=== PATIENT | female | born 1945 | race Caucasian/White ===

== ENCOUNTER 2016-05-09 18:59 | Observation (INO) | payer MEDICARE, BC ==
[~2016-05-09] VITALS: Ht 154.9 cm; Wt 74.4 kg
[2016-05-09] VITALS (13 sets, daily range): BP systolic 102–170; BP diastolic 46–77; PULSE 56–71; RESP 16–18; TEMP 98.5; O2SAT 97–100
[2016-05-09] MEDS ORDERED: ASPI1TAB69 PO (19:29)
[2016-05-09] MEDS ORDERED: LISI10TA3 PO (19:29)
[2016-05-09] MEDS ORDERED: BRIL90TA PO (19:29)
[2016-05-09] MEDS ORDERED: ATOR1TAB18 PO (19:29)
[2016-05-09] MEDS ORDERED: VITA200012 PO (19:29)
[2016-05-09] MEDS ORDERED: METO25TA6 PO (19:29)
[2016-05-09] MEDS ORDERED: SODIUM CHLOR 0.9% 1000 ML INJ 1,000 ML IV SCH (19:30)
[2016-05-09] MEDS ORDERED: SODIUM CHLORIDE 0.9% FLUSH 5 ML FLUSH IVF PRN ×3 (19:30→23:15)
[2016-05-09] MEDS ORDERED: ASPIRIN 81 MG CHEW TAB PO ONE (19:30)
[2016-05-09] MEDS: NITROGLYCERIN 0.4 MG SL 25 TABS/BTL SL SCH ×3 (19:38→20:05)
--- NOTE | 2016-05-09 19:39 | PD ---
HPI Chief Complaint: Chest Pain Time Seen by Provider: 19:17 Travel History International Travel<30 days: No Contact w/Intl Traveler<30days: No Traveled to known affect area: No History of Present Illness HPI 71-year-old female presents to the emergency department by private transportation for complaint of retrosternal chest pain that radiates to the back and rates 4/10 in intensity. Patient reports symptoms began around 4 PM. Patient states similar symptoms although with radiation to the jaw December 2015 at which time she was diagnosed with myocardial infarction with underwent cardiac catheterization with confirmed coronary vessel disease and had 2 stents placed at that time to the LAD and left circumflex. Patient currently takes aspirin 81 mg daily is continued on Brilinta to and has access to sublingual nitroglycerin. Patient did not take any nitroglycerin as she was concerned it may interact adversely with her other medications. Patient denies any shortness of breath, sweats, nausea, or vomiting. Patient denies personal history of hypertension diabetes or tobaccoism; patient does admit to history of dyslipidemia and family history of CAD with father dying in his 70s with previous CABG. Patient denies any shortness of breath or pleuritic pain. Patient has been visiting here from [place] since April 09. Patient has been very active. Patient does not report symptoms beginning while she was active today. [facility] Past Medical History Narrative Medical CAD, myocardial infarction, cardiac catheterization, stents 2, dyslipidemia; tubal ligation and tonsillectomy cardiac catheterization; no tobacco use; nursing notes reviewed Hx Anticoagulant Therapy: Yes (BRILINTA, BABY ASA DAILY) Cardiac Catheterization: Yes (DEC 2015) Cardiovascular Problems: Yes (DE) High Cholesterol: Yes Chest Pain: Yes Coronary Artery Disease: Yes Myocardial Infarction: Yes (DEC 2015) Tetanus Vaccination: > 5 Years Influenza Vaccination: Yes ?: Not Menopausal: Yes : 3 Para: 2 Miscarriage: 1 Tubal Ligation: Yes Past Surgical History Section: Yes (X2) Coronary Stent: Yes (X2) Tonsillectomy: Yes Social History Alcohol Use: Yes ("OCCASIONALLY") Tobacco Use: No Substance Use: No Allergies-Medications (Allergen,Severity, Reaction): Coded Allergies: Penicillin (Verified Allergy, Unknown, Hives, 05/09/16) Reported Meds & Prescriptions Reported Meds & Active Scripts Active Reported Nitrostat SL (Nitroglycerin) 0.4 Mg Subl 0.4 Mg SL DIRECTED PRN 1 tablet under the tongue as needed for chest pain. Repeat every 5 minutes for a total of 3 DOSES or call 911 if NO relief. Vitamin D3 (Cholecalciferol) 2,000 Unit Tab 2,000 Units PO DAILY Aspirin 81 Mg Tabdr 81 Mg PO DAILY Metoprolol Succinate ER 24 HR (Metoprolol Succinate) 25 Mg Tab 25 Mg PO DAILY Lisinopril 10 Mg Tab 10 Mg PO DAILY Brilinta (Ticagrelor) 90 Mg Tab 90 Mg PO BID Atorvastatin (Atorvastatin Calcium) 80 Mg Tab 80 Mg PO HS Review of Systems Except as stated in HPI: all other systems reviewed are Neg General / Constitutional: No: Fever Eyes: No: Visual changes HENT: No: Congestion Cardiovascular: Positive: Chest Pain or Discomfort, No: Diaphoresis, Syncope, Dyspnea on exertion Respiratory: No: Shortness of Breath, Pleuritic Pain Gastrointestinal: No: Nausea, Vomiting, Abdominal Pain Genitourinary: No: Flank Pain Musculoskeletal: No: Pain Skin: No Rash Neurologic: No: Weakness Psychiatric: Positive: Anxiety Hematologic/Lymphatic: No: Easy Bruising Physical Exam Narrative GENERAL: WD WN F NAD SKIN: Warm and dry. HEAD: Normocephalic. EYES: No scleral icterus. No injection or drainage. NECK: Supple, trachea midline. No JVD or lymphadenopathy. CARDIOVASCULAR: Regular rate and rhythm without murmurs, gallops, or rubs. RESPIRATORY: Breath sounds equal bilaterally. No accessory muscle use. GASTROINTESTINAL: Abdomen soft, non-tender, nondistended. MUSCULOSKELETAL: No cyanosis, or edema. BACK: Nontender without obvious deformity. No CVA tenderness. Data Data Last Documented VS Orders Electrocardiogram (05/09/16 19:26) Basic Metabolic Panel (Bmp) (05/09/16 19:26) Ckmb (Isoenzyme) Profile (05/09/16 19:26) Complete Blood Count With Diff (05/09/16 19:26) Magnesium (Mg) (05/09/16 19:26) Prothrombin Time / Inr (Pt) (05/09/16 19:26) Act Partial Throm Time (Ptt) (05/09/16 19:26) Troponin I (05/09/16 19:26) Chest, Single Ap (05/09/16 19:26) Ecg Monitoring (05/09/16 19:26) Bilateral Bp Monitoring (05/09/16 19:26) Iv Access Insert/Monitor (05/09/16 19:26) Oximetry (05/09/16 19:26) Oxygen Administration (05/09/16 19:26) Aspirin Chew (Aspirin Chew) (05/09/16 19:30) Sodium Chloride 0.9% Flush (Ns Flush) (05/09/16 19:30) Nitroglycerin Sl (Nitrostat Sl) (05/09/16 19:30) Sodium Chlor 0.9% 1000 Ml Inj (Ns 1000 M (05/09/16 19:30) Sodium Chlor 0.9% 250 Ml Inj (Ns 250 Ml (05/09/16 20:15) Sodium Chlorid 0.9% 500 Ml Inj (Ns 500 M (05/09/16 20:30) Nitroglycerin 2% Oint (Nitroglycerin 2% (05/09/16 20:30) D-Dimer (05/09/16 19:20) Ketorolac Inj (Toradol Inj) (05/09/16 20:45) Ondansetron Inj (Zofran Inj) (05/09/16 21:30) Morphine Inj (Morphine Inj) (05/09/16 21:30) Troponin I (05/09/16 22:41) Electrocardiogram (05/09/16 ) Ckmb (Isoenzyme) Profile (05/09/16 22:39) Admit Order (Ed Use Only) (05/09/16 ) ^ Saline Lock (05/09/16 23:07) Resp Oxygen Crow C Titrat 1-4 L (05/09/16 ) ^ Notify Dr: Other (05/09/16 23:07) Sodium Chloride 0.9% Flush (Ns Flush) (05/10/16 09:00) Sodium Chloride 0.9% Flush (Ns Flush) (05/09/16 23:15) Activity Bed Rest With Brp (05/09/16 23:07) Vital Signs (Adult) Q4H (05/09/16 23:07) Cardiac Rhythm .As Directed (05/09/16 23:07) ^ Notify Dr: Other .PRN (05/09/16 23:07) ^ Notify Dr. Parameters (05/09/16 23:07) Resp Oxygen Nasal Cannula (05/09/16 ) Ckmb (Isoenzyme) Profile (05/10/16 01:30) Ckmb (Isoenzyme) Profile (05/10/16 04:30) Troponin I (05/10/16 01:30) Troponin I (05/10/16 04:30) Electrocardiogram (05/10/16 04:30) ^ Obtain (05/09/16 23:07) Sodium Chloride 0.9% Flush (Ns Flush) (05/09/16 23:15) Sodium Chloride 0.9% Flush (Ns Flush) (05/10/16 09:00) Clinical Nursing Instructor / Telemetry VALERIA.Q8H (05/09/16 23:07) Labs MDM Medical Decision Making Medical Screen Exam Complete: Yes Emergency Medical Condition: Yes Medical Record Reviewed: Yes Interpretation(s) EKG normal sinus rhythm rate [address] elevation or injury pattern noted at this time there is some nonspecific anterolateral ST-T flattening noted. No comparison EKG identified. troponin I: less than 0.02, not elevated CK: 51, not elevated coags: grossly wnl CBC & BMP Diagram 05/09/16 19:20 Vital Signs Date Time Temp Pulse Resp B/P Pulse Ox O2 Delivery O2 Flow Rate FiO2 05/09/16 20:05 59 110/59 100 Nasal Cannula 2 05/09/16 20:00 58 16 119/67 99 Nasal Cannula 2 05/09/16 19:56 69 16 124/60 99 Nasal Cannula 2 05/09/16 19:52 58 16 127/69 99 Nasal Cannula 2 05/09/16 19:43 71 146/75 99 Nasal Cannula 2 05/09/16 19:41 99 Nasal Cannula 2 05/09/16 19:07 98.5 71 16 170/75 100 168/77 05/09/16 19:05 71 18 Room Air D-dimer: 0.27, not elevated Differential Diagnosis Chest pain, ACS, myocardial infarction, atypical chest pain, PE, aortic dissection; unlikely pneumothorax Narrative Course Patient placed on conveyor monitor IV access obtained specimens collected and sent for resulting EKG performed which does not show any ST elevation injury and no ST segment depression for ischemia patient does have flattening of the lateral ST-T segment which is nonspecific. Patient administered aspirin 162 mg by mouth and ordered to receive sublingual nitroglycerin 0.4 mg every 5 minutes as needed for chest pain. is at bedside. concern patient receiving sublingual nitroglycerin because he is not sure what this medication does even though she was given a prescription for nitroglycerin at time of discharge from the hospital in December she has not used it and they are not sure how to administer the medication. Patient and at bedside provided extensive information regarding intervention being provided and purpose/use of the medication nitroglycerin. Patient and 's questions answered to their satisfaction. After one sublingual nitroglycerin patient reports discomfort remains for over 10 in intensity blood pressure did fall into more normal range. @ 20:20 p.m. patient is informed of lab results imaging results and after x 2 sublingual nitroglycerin blood pressure has decreased was given a bolus of normal saline 250 cc current discomfort she rates as 3/10 in intensity and states symptoms have not provided significant change in discomfort. Call placed to cardiology. Patient reports pain has increased again to 4/10; now reports patient's mother with history of PE. Patient denies any pleuritic pain shortness of breath inactivity lower extremity pain or swelling. D-Dimer added to labs. At 21:30 PM patient is clinically improved rates discomfort as mild but gives it a number of 2/10 in intensity. D-dimer is not elevated at 0.27. Formed of this information. Due to discomfort of 2/10 in intensity well administer morphine sulfate 2 mg IV along with Zofran 4 mg IV. Medical records from previous cardiac catheterization 12/2015 requested. Patient admitted to [facility] Physician Communication Physician Communication call placed to interventional physician cardiology; discussed in detail with Dr Christianson --- appears stable for [facility]; discussed with interventional physician Pauline BADILLO for [facility] [employer] [facility] obs admission Diagnosis Primary Impression: Chest pain Qualified Code: R07.9 - Chest pain, unspecified type Admitting Information Admitting Physician Requests: Observation Gila Yusuf MD May 09, 2016 19:39 CBC & BMP Diagram 05/09/16 19:20 Vital Signs Date Time Temp Pulse Resp B/P Pulse Ox O2 Delivery O2 Flow Rate FiO2 05/09/16 20:05 59 110/59 100 Nasal Cannula 2 05/09/16 20:00 58 16 119/67 99 Nasal Cannula 2 05/09/16 19:56 69 16 124/60 99 Nasal Cannula 2 05/09/16 19:52 58 16 127/69 99 Nasal Cannula 2 05/09/16 19:43 71 146/75 99 Nasal Cannula 2 05/09/16 19:41 99 Nasal Cannula 2 05/09/16 19:07 98.5 71 16 170/75 100 168/77 05/09/16 19:05 71 18 Room Air D-dimer: 0.27, not elevated Differential Diagnosis Chest pain, ACS, myocardial infarction, atypical chest pain, PE, aortic dissection; unlikely pneumothorax Narrative Course Patient placed on conveyor monitor IV access obtained specimens collected and sent for resulting EKG performed which does not show any ST elevation injury and no ST segment depression for ischemia patient does have flattening of the lateral ST-T segment which is nonspecific. Patient administered aspirin 162 mg by mouth and ordered to receive sublingual nitroglycerin 0.4 mg every 5 minutes as needed for chest pain. is at bedside. concern patient receiving sublingual nitroglycerin because he is not sure what this medication does even though she was given a prescription for nitroglycerin at time of discharge from the hospital in December she has not used it and they are not sure how to administer the medication. Patient and at bedside provided extensive information regarding intervention being provided and purpose/use of the medication nitroglycerin. Patient and 's questions answered to their satisfaction. After one sublingual nitroglycerin patient reports discomfort remains for over 10 in intensity blood pressure did fall into more normal range. @ 20:20 p.m. patient is informed of lab results imaging results and after x 2 sublingual nitroglycerin blood pressure has decreased was given a bolus of normal saline 250 cc current discomfort she rates as 3/10 in intensity and states symptoms have not provided significant change in discomfort. Call placed to cardiology. Patient reports pain has increased again to 4/10; now reports patient's mother with history of PE. Patient denies any pleuritic pain shortness of breath inactivity lower extremity pain or swelling. D-Dimer added to labs. At 21:30 PM patient is clinically improved rates discomfort as mild but gives it a number of 2/10 in intensity. D-dimer is not elevated at 0.27. Formed of this information. Due to discomfort of 2/10 in intensity well administer morphine sulfate 2 mg IV along with Zofran 4 mg IV. Medical records from previous cardiac catheterization 12/2015 requested. Physician Communication Physician Communication call placed to interventional physician cardiology; discussed in detail with Dr Christianson --- appears stable for [facility] [employer] [facility] Diagnosis Primary Impression: Chest pain Qualified Code: R07.9 - Chest pain, unspecified type Glia Yusuf MD May 09, 2016 19:39
[2016-05-09 19:46] LABS: AUTOMATED NEUTROPHIL # 6.5 TH/MM3 (1.8-7.7); BASOPHIL # 0.1 TH/MM3 (0-0.2); BASOPHIL % 1.6 % (0.0-2.0); EOSINOPHIL # 0.2 TH/MM3 (0-0.4); EOSINOPHIL % 2.2 % (0.0-4.0); HEMATOCRIT 40.5 % (35.0-46.0); HEMO FLAGS DIFF FINAL; LYMPH % 16.9 % (9.0-44.0); LYMPHOCYTE # 1.6 TH/MM3 (1.0-4.8); MEAN CELL VOLUME 88.5 FL (80.0-100.0); MEAN CORPUSCULAR HEMOGLOBIN 30.2 PG (27.0-34.0); MEAN CORPUSCULAR HGB CONC 34.2 % (32.0-36.0); MONO % 9.4 % (0.0-8.0); NEUT % 69.9 % (16.0-70.0); PLATELET COUNT 263 TH/MM3 (150-450); RED BLOOD COUNT 4.57 MIL/MM3 (4.00-5.30); RED CELL DISTRIBUTION WIDTH 13.6 % (11.6-17.2); WHITE BLOOD COUNT 9.3 TH/MM3 (4.0-11.0)
[2016-05-09 19:54] LABS: CHLORIDE 106 MEQ/L (98-107); POTASSIUM 3.9 MEQ/L (3.5-5.1); SODIUM (NA) 142 MEQ/L (136-145)
[2016-05-09 19:56] LABS: ANION GAP 8 MEQ/L (5-15); BICARBONATE 28.4 MEQ/L (21.0-32.0); BLOOD UREA NITROGEN 14 MG/DL (7-18); MAGNESIUM 1.9 MG/DL (1.5-2.5)
[2016-05-09 19:59] LABS: APTT (PATIENT) 25.7 SEC (24.3-30.1); INTERNATIONAL NORMALIZED RATIO 0.9 RATIO
[2016-05-09 20:00] LABS: GLOMERULAR FILTRATION RATE 82 ML/MIN (>89)
[2016-05-09 20:03] LABS: CREATINE KINASE 51 U/L (26-192)
[2016-05-09] MEDS ORDERED: SODIUM CHLOR 0.9% 250 ML INJ 250 ML IV ONE (20:15)
--- NOTE | 2016-05-09 20:16 | RADHPO ---
EXAM DATE/TIME: 05/09/2016 19:41 [facility] COMPARISON: No previous studies available for comparison. INDICATIONS : Chest pain. MEDICAL HISTORY : Myocardial infarction. Hypercholesterolemia. CAD SURGICAL HISTORY : Tonsillectomy. Tubal ligation. Coronary artery stent. ENCOUNTER: Initial ACUITY: 1 day PAIN SCORE: 7/10 LOCATION: Bilateral buttock FINDINGS: The lungs are clear without infiltrate, nodule, or mass. There is no appreciable pleural effusion fo r technique. Heart and mediastinum are unremarkable. CONCLUSION: No acute cardiopulmonary disease. Irene Clement MD on May 09, 2016 at 20:14 Board Certified Radiologist. This report was verified electronically.
[2016-05-09] MEDS ORDERED: NITROGLYCERIN 2% OINT 1 GM PACKET TOPICAL ONE (20:30)
[2016-05-09] MEDS ORDERED: SODIUM CHLORID 0.9% 500 ML INJ 500 ML IV ONE (20:30)
[2016-05-09] MEDS ORDERED: KETOROLAC TROMETHAMINE 30 MG/ML (IVP) VIAL IV PUSH ONE (20:45)
[2016-05-09] MEDS ORDERED: NITR0.4S SL (21:00)
[2016-05-09] MEDS ORDERED: MORPHINE SULFATE 4 MG/ML INJ IV PUSH ONE (21:30)
[2016-05-09] MEDS ORDERED: ONDANSETRON HCL 4 MG/2 ML VIAL IV PUSH ONE (21:30)
[2016-05-09 23:22] LABS: CREATINE KINASE 43 U/L (26-192)
[2016-05-10] VITALS (8 sets, daily range): BP systolic 99–115; BP diastolic 55–81; PULSE 57–136; RESP 14–19; TEMP 96.8–98.3; O2SAT 94–99
[2016-05-10 03:08] LABS: CREATINE KINASE 37 U/L (26-192)
[2016-05-10 05:27] LABS: CREATINE KINASE 34 U/L (26-192)
[2016-05-10] MEDS ORDERED: NITROGLYCERIN 0.4 MG SL 25 TABS/BTL SL PRN (05:45)
--- NOTE | 2016-05-10 07:37 | HHI.HP ---
[facility] Primary Care Physician Non-Staff Admission Diagnosis chest pain Diagnoses: (1) Chest pain Diagnosis: Principal (2) Coronary artery disease Diagnosis: Secondary (3) Hyperlipidemia Diagnosis: Secondary (4) History of coronary artery stent placement Diagnosis: Secondary (5) Family history of heart disease Diagnosis: Secondary Chief Complaint: Chest pain Travel History International Travel<30 Days: No Contact w/Intl Traveler <30 Da: No Traveled to Known Affected Are: No History of Present Illness 71-year-old female with known history of coronary disease, hyperlipidemia who presented to the hospital because of chest pain. Patient states that she is in normal state of health yesterday in October and pedicures with her friend. She started developing midsternal chest pain 2/10 on a pain scale. It is located midsternal chest with radiation into her back. She denies any radiation to her neck, jaw, arm, denies any nausea, vomiting, shortness of breath, dyspnea, diaphoresis. Patient states that the pain was constant so she presented to the ER for evaluation. Patient states that she is given 2 aspirin, 2 nitroglycerin, without any relief. Nitropaste was placed and morphine was given and slowly the pain did resolve at approximately midnight last night. Patient is asymptomatic at this time. 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 She did undergo cardiac catheterization in December 2015. She had 2 stents placed. She has been taking her medications in outpatient setting. Is recommended by ER physician that patient be observed in the hospital in the chest pain center for further recommendations. Review of Systems Constitutional: DENIES: Diaphoretic episodes, Fatigue, Fever, Weight gain, Weight loss, Chills, Dizziness, Change in appetite, Night Sweats Eyes: DENIES: Blurred vision, Diplopia, Eye inflammation, Eye pain, Vision loss , Double Vision Ears, nose, mouth, throat: DENIES: Vertigo, Nasal discharge, Throat pain, Ear Pain, Running Nose, Sinus Pain Respiratory: DENIES: Apneas, Cough, Snoring, Wheezing, Hemoptysis, Sputum production, Shortness of breath Cardiovascular: COMPLAINS OF: Chest pain, DENIES: Palpitations, Syncope, Dyspnea on Exertion, Lower Extremity Edema, Orthopnea Gastrointestinal: DENIES: Abdominal pain, Black stools, Bloody stools, Constipation, Diarrhea, Nausea, Vomiting, Difficulty Swallowing, Anorexia Neurologic: DENIES: Abnormal gait, Headache, Localized weakness, Paresthesias, Seizures, Speech Problems, Tremor, Poor Balance Past Family Social History Past Medical History Hyperlipidemia Coronary artery disease History of myocardial infarction Past Surgical History Tonsillectomy 2 Tubal ligation Bilateral bunionectomy Reported Medications Reported Meds & Active Scripts Active Reported Nitrostat SL (Nitroglycerin) 0.4 Mg Subl 0.4 Mg SL DIRECTED PRN 1 tablet under the tongue as needed for chest pain. Repeat every 5 minutes for a total of 3 DOSES or call 911 if NO relief. Vitamin D3 (Cholecalciferol) 2,000 Unit Tab 2,000 Units PO DAILY Aspirin 81 Mg Tabdr 81 Mg PO DAILY Metoprolol Succinate ER 24 HR (Metoprolol Succinate) 25 Mg Tab 25 Mg PO DAILY Lisinopril 10 Mg Tab 10 Mg PO DAILY Brilinta (Ticagrelor) 90 Mg Tab 90 Mg PO BID Atorvastatin (Atorvastatin Calcium) 80 Mg Tab 80 Mg PO HS Allergies: Coded Allergies: Penicillin (Verified Allergy, Unknown, Hives, 05/09/16) Family History Reviewed and strong family history of heart disease with father. Have his first heart attack when he was age 44, underwent coronary bypass surgery, patient had 2 major strokes and renal failure Social History Patient denies any tobacco or illicit drugs. Does drink alcohol approximately 1 -2 times monthly Physical Exam Vital Signs Vital Signs Date Time Temp Pulse Resp B/P Pulse Ox O2 Delivery O2 Flow Rate FiO2 05/10/16 05:08 96.8 60 14 99/55 96 05/10/16 01:50 57 05/10/16 01:30 57 05/10/16 01:17 136 18 113/58 94 Room Air 05/09/16 23:39 97 Nasal Cannula 2.00 05/09/16 23:11 64 110/49 99 Nasal Cannula 2 05/09/16 22:41 64 16 102/46 97 Nasal Cannula 2 05/09/16 22:00 16 05/09/16 21:41 62 114/49 98 Nasal Cannula 2 05/09/16 21:11 63 16 125/58 97 Nasal Cannula 2 05/09/16 20:41 56 18 137/51 100 Nasal Cannula 2 05/09/16 20:22 61 16 144/64 99 Nasal Cannula 2 05/09/16 20:05 59 110/59 100 Nasal Cannula 2 05/09/16 20:00 58 16 119/67 99 Nasal Cannula 2 05/09/16 19:56 69 16 124/60 99 Nasal Cannula 2 05/09/16 19:52 58 16 127/69 99 Nasal Cannula 2 05/09/16 19:43 71 146/75 99 Nasal Cannula 2 05/09/16 19:41 99 Nasal Cannula 2 05/09/16 19:07 170/75 168/77 05/09/16 19:07 98.5 71 16 170/75 100 168/77 05/09/16 19:05 71 18 Room Air Physical Exam GENERAL: Well-developed, well-nourished, in no acute distress. alert and orientated HEENT: Head is normocephalic without any lesions or masses noted. Facial features are symmetric. Eyes: Pupils equal round reactive to light. Extraocular muscles are intact. Conjunctivae were clear. Oropharyngeal: Pharynx without any erythema edema. Tongue is midline without deviation. Buccal mucosa is moist without any masses or lesions NECK: Supple without any masses. Trachea midline no deviation. No JVD, no bruits are appreciated CARDIAC: Regular rhythm, regular rate. S1/S2 are heard. No gallops or rubs. 2/ 6 early ejection murmur noted in aortic and pulmonic regions LUNGS: Clear to auscultation bilaterally. No wheeze, rhonchi or rales. No use of accessory muscles on inspiration or expiration. ABDOMEN: Soft, nontender. Nondistended. Bowel sounds heard in all 4 quadrants. No organomegaly or masses. Negative rebound, negative guarding EXTREMITIES: No edema, pulses are equal bilaterally. No cyanosis or clubbing NEUROLOGY: Mood and affect appear appropriate. Cranial nerves II through XII grossly intact. Muscle strength 5/5 in upper and lower extremities bilaterally. Deep tendon reflexes are 2+ in upper and lower extremities bilaterally. Laboratory Laboratory Tests Test 05/09/16 05/09/16 05/10/16 05/10/16 19:20 22:39 02:15 04:45 White Blood Count 9.3 Red Blood Count 4.57 Hemoglobin 13.8 Hematocrit 40.5 Mean Corpuscular Volume 88.5 Mean Corpuscular Hemoglobin 30.2 Mean Corpuscular Hemoglobin 34.2 Concent Red Cell Distribution Width 13.6 Platelet Count 263 Mean Platelet Volume 7.8 Neutrophils (%) (Auto) 69.9 Lymphocytes (%) (Auto) 16.9 Monocytes (%) (Auto) 9.4 Eosinophils (%) (Auto) 2.2 Basophils (%) (Auto) 1.6 Neutrophils # (Auto) 6.5 Lymphocytes # (Auto) 1.6 Monocytes # (Auto) 0.9 Eosinophils # (Auto) 0.2 Basophils # (Auto) 0.1 CBC Comment DIFF FINAL Differential Comment Prothrombin Time 10.0 Prothromb Time International 0.9 Ratio Activated Partial 25.7 Thromboplast Time D-Dimer Quantitative (PE/DVT) 0.27 Sodium Level 142 Potassium Level 3.9 Chloride Level 106 Carbon Dioxide Level 28.4 Anion Gap 8 Blood Urea Nitrogen 14 Creatinine 0.71 Estimat Glomerular Filtration 82 Rate Random Glucose 98 Calcium Level 8.6 Magnesium Level 1.9 Total Creatine Kinase 51 43 37 34 Troponin I LESS THAN 0.02 LESS THAN 0.02 LESS THAN 0.02 LESS THAN 0.02 Result Diagram: 05/09/16191905/09/161919 Imaging Last Impressions Chest X-Ray 05/09/161925 Signed Impressions: Service Date/Time: Monday, May 09, 2016 19:41 - CONCLUSION: No acute cardiopulmonary disease. Irene Clement MD Assessment and Plan Assessment and Plan Chest pain Patient with increased risk factors to include age, coronary artery disease, history myocardial infarction, hyperlipidemia, family history of heart disease Serial cardiac enzymes were performed and reviewed by myself and ruled out any acute coronary event Serial EKGs were performed and reviewed by myself which shows sinus rhythm with nonspecific ST changes and anterior lateral leads Patient reluctant to undergo nuclear stress test, wants to discuss with her , because her father had kidney failure related to stress test in the past. Patient would pursue exercise stress test however patient does have an aortic early systolic murmur. Nuclear stress test was performed which does show a fixed defect. No reversible defect is identified to indicate any ischemia. Continue aspirin and nitroglycerin as needed Coronary artery disease, hyperlipidemia Continue home medications DVT prevention Low risk, early ambulation Written by Andrei Ramirez PA-C, acting as scribe for Dr. Montgomery on 05/10/16 at 1250. The documentation accurately reflects the work and decisions performed face-to- face by Dr. Montgomery on 05/10/16 at 1250. Discharge disposition Discharge home in stable condition Activity: Ad viral. Diet: Healthy heart diet Medications per medication reconciliation Follow-up primary medical doctor and patch sander in one week Problem Qualifiers (1) Chest pain: Qualified Code: R07.9 - Chest pain, unspecified type (2) Coronary artery disease: Qualified Code: I25.10 - Coronary artery disease, angina presence unspecified, unspecified vessel or lesion type, unspecified whether [place] or transplanted heart (3) Hyperlipidemia: Qualified Code: E78.5 - Hyperlipidemia, unspecified hyperlipidemia type Andrei Ramirez May 10, 2016 07:29 Swati Montgomery MD May 10, 2016 13:03
[2016-05-10] MEDS ORDERED: LISINOPRIL 10 MG TAB PO SCH (09:00)
[2016-05-10] MEDS ORDERED: TICAGRELOR 90 MG TAB PO SCH (09:00)
[2016-05-10] MEDS ORDERED: METOPROLOL SUCCINATE 25 MG EXTENDED RELEASE TAB PO SCH (09:00)
[2016-05-10] MEDS ORDERED: ASPIRIN EC 81 MG TABEC PO SCH (09:00)
[2016-05-10] MEDS ORDERED: SODIUM CHLORIDE 0.9% FLUSH 5 ML FLUSH IVF SCH ×2 (09:00)
[2016-05-10] MEDS ORDERED: REGADENOSON INJ 0.4 MG/5 ML SYR IV ONE (11:07)
--- NOTE | 2016-05-10 12:42 | RADHPO ---
EXAM DATE/TIME: 05/10/2016 11:20 [facility] COMPARISON: No previous studies available for comparison. INDICATIONS : Midsternal chest pain radiating to back. Angina. DOSE: 25.4 mCi Tc99m Myoview at stress. 8.5 mCi Tc99m Myoview at rest. 0.4 mg Lexiscan STRESS SYMPTOMS: Dyspnea and headache. EJECTION FRACTION: 69% MEDICAL HISTORY : Myocardial infarction. Hypercholesterolemia. Coronary artery disease. SURGICAL HISTORY : Coronary artery stent. Tubal ligation. section. Tonsilectomy and bunionectomy. ENCOUNTER: Initial ACUITY: 1 day PAIN SCALE: 4/10 LOCATION: Midsternal chest TECHNIQUE: The patient underwent pharmacologic stress with infusion of prescribed dose. Continuous ECG tracing was monitored during stress. Gated SPECT imaging was performed after stress and conventional SPECT i maging was performed at rest. The examination was performed on a SPECT/CT scanner, both attenuation and non-corrected datasets were reviewed. FINDINGS: DISTRIBUTION: The maximum perfused segment at stress is in the anterior wall. PERFUSION STUDY: Fixed defect within the lateral wall towards the base. No reversible perfusion defects GATED STUDY: There is intact wall motion and thickening without hypokinetic or dyskinetic segments. CONCLUSION: Fixed defect lateral wall likely old infarct. No reversible perfusion defects to suggest ischemia. RISK CATEGORY: Intermediate (1-3% Annual Mortality Rate) Cecilio Carias MD on May 10, 2016 at 12:40 Board Certified Radiologist. This report was verified electronically.
--- NOTE | 2016-05-10 12:53 | HHI.DCPOC ---
Discharge Care Plan Diagnosis: (1) Chest pain Your Health Problems Are: Chest Pain Goals to Promote Your Health * To prevent worsening of your condition and complications * To maintain your health at the optimal level Directions to Meet Your Goals Take your medications as prescribed Follow your dietary instruction Follow activity as directed Keep your appointments as scheduled Take your immunizations and boosters as scheduled If your symptoms worsen call your PCP, if no PCP go to Urgent Care Center or Emergency Room Smoking is Dangerous to Your Health. Avoid second hand smoke Call the 24-hour hour crisis hotline for domestic abuse at Andrei Ramirez May 10, 2016 12:53
--- NOTE | 2016-05-10 17:36 | TR ---
Date Performed: 05/10/2016 Time Performed: 11:22:40 DOCTOR: Jose Daniel DRUG LIST: CLINICAL HISTORY: CHEST PAIN REASON FOR TEST: Chest pain. REASON FOR ENDING: OBSERVATION: CONCLUSION: Lexiscan stress test was performed under standard four minute protocol. Radionuclide was injected one minute prior to ending the test. Developed dyspnea and headache. Rare PVCs were not ed. ECG tracings at peak stress show ischemic changes leads I, II and V4. Recovery was quick and unev entful with resolution of symptoms. Nuclear imaging and interpretation are pending, COMMENTS:
[2016-05-10] MEDS ORDERED: ATORVASTATIN 40 MG TAB PO SCH ×2 (21:00)
[2016-05-10] MEDS ORDERED: ATORVASTATIN 80 MG TAB PO SCH (21:00)
--- NOTE | 2016-05-11 13:24 | EKG ---
Date Performed: 05/10/2016 Time Performed: 04:35:08 PTAGE: 71 years EKG: Sinus bradycardia. Normal ECG except for rate Since PREVIOUS TRACING , no significant change noted PREVIOUS TRACIN05/09/2016 23.09 DOCTOR: Torito Kiran Interpretating Date/Time 05/11/2016 13:24:04
--- NOTE | 2016-05-11 13:25 | EKG ---
Date Performed: 05/09/2016 Time Performed: 19:04:56 PTAGE: 71 years EKG: Sinus rhythm . Lateral ST-T changes are nonspecific Since previous tracing, no significant change noted Borderline ECG NO PREVIOUS TRACING DOCTOR: Torito Kiran Interpretating Date/Time 05/11/2016 13:24:31
--- NOTE | 2016-05-11 13:25 | EKG ---
Date Performed: 05/09/2016 Time Performed: 23:09:34 PTAGE: 71 years EKG: Sinus rhythm . Anterolateral ST-T changes are nonspecific Since previous tracing, no significant change noted [facility] ECG PREVIOUS TRACING : 05/09/2016 19.04 DOCTOR: Torito Kiran Interpretating Date/Time 05/11/2016 13:24:21
== END 2016-05-10 13:28 | disposition home or self-care (01) ==
LOC: PHED 18:59 → PHEDA 23:21 → UNDOADMOB 23:21 → PHEDA 05-10 01:26 → PH3A 05-10 01:26 → UNDODISOB 05-10 13:28
PROVIDERS: ADMIT Family Medicine; ATTEND Family Medicine
DX: R07.89 Other chest pain (principal); I25.10 Atherosclerotic heart disease of native coronary artery without angina pectoris; R01.1 Cardiac murmur, unspecified; R94.31 Abnormal electrocardiogram [ECG] [EKG]; E78.5 Hyperlipidemia, unspecified; I25.2 Old myocardial infarction; E78.00 Pure hypercholesterolemia, unspecified; Z95.5 Presence of coronary angioplasty implant and graft; Z79.82 Long term (current) use of aspirin; Z82.49 Family history of ischemic heart disease and other diseases of the circulatory system
CPT/HCPCS: 71010; 78452; 80048; 82550; 83735; 84484; 85025; 85379; 85610; 85730; 93005; 93017; 96361; 96374; 96375; 99285; A9502; G0378; J1885; J2270; J2405; J2785; J7030; J7040; J7050

== ENCOUNTER 2016-05-16 16:58 | Inpatient (IN) | payer MEDICARE, BC ==
[~2016-05-16] VITALS: Ht 154.9 cm; Wt 72.1 kg
[~2016-05-16 16:58] MED LIST: ASPI1TAB69 PO; ATOR1TAB18 PO; BRIL90TA PO; LISI10TA3 PO; METO25TA6 PO; NITR0.4S SL; VITA200012 PO
[2016-05-16 17:00] VITALS: BP 171/74; PULSE 107; RESP 18; TEMP 98; O2SAT 99
--- NOTE | 2016-05-16 19:43 | PD ---
HPI Chief Complaint: Abdominal Pain Time Seen by Provider: 19:28 Travel History International Travel<30 days: No Contact w/Intl Traveler<30days: No Traveled to known affect area: No History of Present Illness HPI 71-year-old female history of coronary artery disease presents after being sent by an urgent care center for evaluation of cholecystitis. The patient reports that last weekend she began developing some right upper quadrant abdominal pain. Initially she felt that she was having chest pain and she was admitted to [facility] chest pain center. The patient reports that symptoms resolved 6 days ago but then returned 5 days ago. Since then she's had intermittent right upper quadrant abdominal pain that radiates into the back which she describes as an aching pain. There are no obvious leading factors. It seems to be somewhat aggravated by eating, for example a few days ago she ate [employer] and this seemed to aggravate the pain. She was seen at an urgent care center yesterday and sent for CT abdomen and pelvis with contrast. The radiology report of her CT reads "abnormal gallbladder which is very distended, thick-walled, and inflamed. It contains no calcified stones. Findings represent acute or chronic cholecystitis. There are inflammatory changes present suggesting at least some acute inflammation. Suggest surgical consultation for cholecystectomy." Radiologist Dr Pham. The patient was then sent here. She denies any pain at this time. She has had decreased appetite, nausea. Denies any chest pain, shortness of breath, fevers, flank pain, dysuria, hematuria. 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 No other complaints. PFSH Past Medical History Hx Anticoagulant Therapy: Yes (BRILINTA) Cardiac Catheterization: Yes (DEC 2015) Cardiovascular Problems: Yes High Cholesterol: Yes Chest Pain: Yes Coronary Artery Disease: Yes Myocardial Infarction: Yes (DEC 2015) Menopausal: Yes : 3 Para: 2 Miscarriage: 1 Tubal Ligation: Yes Past Surgical History Section: Yes (X2) Coronary Stent: Yes (X2) Tonsillectomy: Yes Social History Alcohol Use: Yes ("OCCASIONALLY") Tobacco Use: No Substance Use: No Allergies-Medications (Allergen,Severity, Reaction): Coded Allergies: Penicillin (Verified Allergy, Unknown, Hives, 05/09/16) Reported Meds & Prescriptions Reported Meds & Active Scripts Active Reported Omeprazole 20 Mg Tab 20 Mg PO DAILY Nitrostat SL (Nitroglycerin) 0.4 Mg Subl 0.4 Mg SL DIRECTED PRN 1 tablet under the tongue as needed for chest pain. Repeat every 5 minutes for a total of 3 DOSES or call 911 if NO relief. Vitamin D3 (Cholecalciferol) 2,000 Unit Tab 2,000 Units PO DAILY Aspirin 81 Mg Tabdr 81 Mg PO DAILY Metoprolol Succinate ER 24 HR (Metoprolol Succinate) 25 Mg Tab 25 Mg PO DAILY Lisinopril 10 Mg Tab 10 Mg PO DAILY Brilinta (Ticagrelor) 90 Mg Tab 90 Mg PO BID Atorvastatin (Atorvastatin Calcium) 80 Mg Tab 80 Mg PO HS Review of Systems Except as stated in HPI: all other systems reviewed are Neg Physical Exam Narrative GENERAL: Pleasant well-developed well-nourished female in no acute distress SKIN: Warm and dry. HEAD: Atraumatic. Normocephalic. EYES: Pupils equal and round. No scleral icterus. No injection or drainage. ENT: No nasal bleeding or discharge. Mucous membranes pink and moist. NECK: Trachea midline. No JVD. CARDIOVASCULAR: Regular rate and rhythm. No murmur appreciated. RESPIRATORY: No accessory muscle use. Clear to auscultation. Breath sounds equal bilaterally. GASTROINTESTINAL: Abdomen soft, mild right upper quadrant tenderness to palpation without guarding, negative Daley's. MUSCULOSKELETAL: No obvious deformities. No edema. NEUROLOGICAL: Awake and alert. No obvious cranial nerve deficits. Motor grossly within normal limits. Normal speech. PSYCHIATRIC: Appropriate mood and affect; insight and judgment normal. Data Data Last Documented VS Vital Signs Date Time Temp Pulse Resp B/P Pulse Ox O2 Delivery O2 Flow Rate FiO2 05/16/16 21:50 16 05/16/16 21:49 98.5 84 151/65 99 Room Air Orders Complete Blood Count With Diff (05/16/16 19:36) Comprehensive Metabolic Panel (05/16/16 19:36) Lipase (05/16/16 19:36) Prothrombin Time / Inr (Pt) (05/16/16 19:36) Act Partial Throm Time (Ptt) (05/16/16 19:36) Electrocardiogram (05/16/16 19:36) Iv Access Insert/Monitor (05/16/16 19:36) Levofloxacin 500 Mg Premix Inj (Levaquin (05/16/16 19:45) Metronidazole 500 Mg Inj (Flagyl 500 Mg (05/16/16 19:45) Ondansetron Inj (Zofran Inj) (05/16/16 19:45) Lactic Acid Sepsis Protocol (05/16/16 19:44) Blood Culture (05/16/16 19:44) Admit Order (Ed Use Only) (05/16/16 ) Diet Npo (05/17/16 Breakfast) Consult General Surgery (05/16/16 ) Labs Laboratory Tests Test 05/16/16 05/16/16 19:41 20:15 White Blood Count 11.4 TH/MM3 Red Blood Count 4.25 MIL/MM3 Hemoglobin 12.8 GM/DL Hematocrit 37.2 % Mean Corpuscular Volume 87.6 FL Mean Corpuscular Hemoglobin 30.1 PG Mean Corpuscular Hemoglobin 34.4 % Concent Red Cell Distribution Width 14.1 % Platelet Count 314 TH/MM3 Mean Platelet Volume 7.4 FL Neutrophils (%) (Auto) 80.3 % Lymphocytes (%) (Auto) 6.7 % Monocytes (%) (Auto) 10.9 % Eosinophils (%) (Auto) 1.6 % Basophils (%) (Auto) 0.5 % Neutrophils # (Auto) 9.1 TH/MM3 Lymphocytes # (Auto) 0.8 TH/MM3 Monocytes # (Auto) 1.2 TH/MM3 Eosinophils # (Auto) 0.2 TH/MM3 Basophils # (Auto) 0.1 TH/MM3 CBC Comment DIFF FINAL Differential Comment Prothrombin Time 11.0 SEC Prothromb Time International 1.0 RATIO Ratio Activated Partial 29.3 SEC Thromboplast Time Sodium Level 136 MEQ/L Potassium Level 4.2 MEQ/L Chloride Level 101 MEQ/L Carbon Dioxide Level 25.4 MEQ/L Anion Gap 10 MEQ/L Blood Urea Nitrogen 11 MG/DL Creatinine 0.65 MG/DL Estimat Glomerular Filtration 90 ML/MIN Rate Random Glucose 76 MG/DL Calcium Level 8.7 MG/DL Total Bilirubin 0.6 MG/DL Aspartate Amino Transf 31 U/L (AST/SGOT) Alanine Aminotransferase 37 U/L (ALT/SGPT) Alkaline Phosphatase 136 U/L Total Protein 7.5 GM/DL Albumin 2.9 GM/DL Lipase 55 U/L Lactic Acid Level 0.9 mmol/L MDM Medical Decision Making Medical Screen Exam Complete: Yes Emergency Medical Condition: Yes Medical Record Reviewed: Yes Differential Diagnosis Cholecystitis, biliary colic, choledocholithiasis, cholangitis, peptic ulcer disease, pancreatitis Narrative Course 71-year-old female who is had intermittent right upper quadrant pain radiating to the back for the past week. She had a CT of the abdomen and pelvis is now patient today revealing evidence of cholecystitis. The patient reports an allergy to penicillin(hives). The patient will be given empirically Flagyl and Levaquin. The patient was initially seen in triage. Protocol orders were performed. The patient will be moved to a medical bed when one becomes available. She is stable. Scripts Hydrocodone-Acetaminophen (Lortab)5-325 Mg Tab1 Tab PO Q6H PRN (PAIN) #28 TAB Ref 0 Prov:Antolin Sneed MD 05/17/16 Jelani Niño May 16, 2016 19:43
[2016-05-16] MEDS ORDERED: metroNIDAZOLE 500 MG INJ 100 ML IV ONE (19:45)
[2016-05-16] MEDS ORDERED: ONDANSETRON HCL 4 MG/2 ML VIAL IV PUSH ONE (19:45)
[2016-05-16] MEDS ORDERED: LEVOFLOXACIN 500 MG PREMIX INJ 100 ML IV ONE (19:45)
[2016-05-16] MEDS ORDERED: OMEP20TA PO (19:49)
[2016-05-16 19:55] LABS: AUTOMATED NEUTROPHIL # 9.1 TH/MM3 (1.8-7.7); BASOPHIL # 0.1 TH/MM3 (0-0.2); BASOPHIL % 0.5 % (0.0-2.0); EOSINOPHIL # 0.2 TH/MM3 (0-0.4); EOSINOPHIL % 1.6 % (0.0-4.0); HEMATOCRIT 37.2 % (35.0-46.0); HEMO FLAGS DIFF FINAL; LYMPH % 6.7 % (9.0-44.0); LYMPHOCYTE # 0.8 TH/MM3 (1.0-4.8); MEAN CELL VOLUME 87.6 FL (80.0-100.0); MEAN CORPUSCULAR HEMOGLOBIN 30.1 PG (27.0-34.0); MEAN CORPUSCULAR HGB CONC 34.4 % (32.0-36.0); MONO % 10.9 % (0.0-8.0); NEUT % 80.3 % (16.0-70.0); PLATELET COUNT 314 TH/MM3 (150-450); RED BLOOD COUNT 4.25 MIL/MM3 (4.00-5.30); RED CELL DISTRIBUTION WIDTH 14.1 % (11.6-17.2); WHITE BLOOD COUNT 11.4 TH/MM3 (4.0-11.0)
[2016-05-16 20:26] LABS: ALKALINE PHOSPHATASE 136 U/L (45-117); ALT (GPT) 37 U/L (10-53); ANION GAP 10 MEQ/L (5-15); AST (GOT) 31 U/L (15-37); BICARBONATE 25.4 MEQ/L (21.0-32.0); BLOOD UREA NITROGEN 11 MG/DL (7-18); CHLORIDE 101 MEQ/L (98-107); GLOMERULAR FILTRATION RATE 90 ML/MIN (>89); POTASSIUM 4.2 MEQ/L (3.5-5.1); SODIUM (NA) 136 MEQ/L (136-145); TOTAL BILIRUBIN ADULT 0.6 MG/DL (0.2-1.0)
[2016-05-16 20:32] LABS: APTT (PATIENT) 29.3 SEC (24.3-30.1)
[2016-05-16 21:49] VITALS: BP 151/65; PULSE 84; RESP 16; TEMP 98.5; O2SAT 99
[2016-05-16] MEDS ORDERED: BISACODYL 10 MG SUPP PR PRN (22:15)
[2016-05-16] MEDS ORDERED: NALOXONE HCL 0.4 MG/ML AMP IV PRN (22:15)
[2016-05-16] MEDS ORDERED: MAGNESIUM HYDROXIDE SUSP 30 ML CUP PO PRN (22:15)
[2016-05-16] MEDS ORDERED: SENNOSIDES 8.6 MG TAB PO PRN (22:15)
[2016-05-16] MEDS ORDERED: SODIUM CHLORIDE 0.9% FLUSH 5 ML FLUSH FLUSH PRN (22:15)
[2016-05-16] MEDS ORDERED: DOCUSATE SODIUM 100 MG CAP PO SCH (22:15)
[2016-05-16] MEDS ORDERED: ACETAMINOPHEN 325 MG TAB PO PRN (22:15)
[2016-05-16] MEDS ORDERED: ONDANSETRON HCL 4 MG/2 ML VIAL IVP PRN (22:15)
--- NOTE | 2016-05-16 22:17 | PD ---
Data Data Last Documented VS Vital Signs Date Time Temp Pulse Resp B/P Pulse Ox O2 Delivery O2 Flow Rate FiO2 05/16/16 21:50 16 05/16/16 21:49 98.5 84 151/65 99 Room Air Orders Complete Blood Count With Diff (05/16/16 19:36) Comprehensive Metabolic Panel (05/16/16 19:36) Lipase (05/16/16 19:36) Prothrombin Time / Inr (Pt) (05/16/16 19:36) Act Partial Throm Time (Ptt) (05/16/16 19:36) Electrocardiogram (05/16/16 19:36) Iv Access Insert/Monitor (05/16/16 19:36) Levofloxacin 500 Mg Premix Inj (Levaquin (05/16/16 19:45) Metronidazole 500 Mg Inj (Flagyl 500 Mg (05/16/16 19:45) Ondansetron Inj (Zofran Inj) (05/16/16 19:45) Lactic Acid Sepsis Protocol (05/16/16 19:44) Blood Culture (05/16/16 19:44) Admit Order (Ed Use Only) (05/16/16 ) Diet Npo (05/17/16 Breakfast) Consult General Surgery (05/16/16 ) Labs Laboratory Tests Test 05/16/16 05/16/16 19:41 20:15 White Blood Count 11.4 TH/MM3 Red Blood Count 4.25 MIL/MM3 Hemoglobin 12.8 GM/DL Hematocrit 37.2 % Mean Corpuscular Volume 87.6 FL Mean Corpuscular Hemoglobin 30.1 PG Mean Corpuscular Hemoglobin 34.4 % Concent Red Cell Distribution Width 14.1 % Platelet Count 314 TH/MM3 Mean Platelet Volume 7.4 FL Neutrophils (%) (Auto) 80.3 % Lymphocytes (%) (Auto) 6.7 % Monocytes (%) (Auto) 10.9 % Eosinophils (%) (Auto) 1.6 % Basophils (%) (Auto) 0.5 % Neutrophils # (Auto) 9.1 TH/MM3 Lymphocytes # (Auto) 0.8 TH/MM3 Monocytes # (Auto) 1.2 TH/MM3 Eosinophils # (Auto) 0.2 TH/MM3 Basophils # (Auto) 0.1 TH/MM3 CBC Comment DIFF FINAL Differential Comment Prothrombin Time 11.0 SEC Prothromb Time International 1.0 RATIO Ratio Activated Partial 29.3 SEC Thromboplast Time Sodium Level 136 MEQ/L Potassium Level 4.2 MEQ/L Chloride Level 101 MEQ/L Carbon Dioxide Level 25.4 MEQ/L Anion Gap 10 MEQ/L Blood Urea Nitrogen 11 MG/DL Creatinine 0.65 MG/DL Estimat Glomerular Filtration 90 ML/MIN Rate Random Glucose 76 MG/DL Calcium Level 8.7 MG/DL Total Bilirubin 0.6 MG/DL Aspartate Amino Transf 31 U/L (AST/SGOT) Alanine Aminotransferase 37 U/L (ALT/SGPT) Alkaline Phosphatase 136 U/L Total Protein 7.5 GM/DL Albumin 2.9 GM/DL Lipase 55 U/L Lactic Acid Level 0.9 mmol/L [facility] Supervised Visit with FRANK: Yes Narrative Course Assumed care patient. 71 year-old woman with a week's worth of epigastric abdominal pain, initially thought it was her heart disease. [place] similar to her previous heart disease. She has stents, [place], and is on Proventil. She didn't admission to [facility] with a negative workup and stress test. She went to an urgent care today where she had a CT scan that showed abnormal gallbladder which is very distended, thick-walled, and inflamed. No calcified gallstones. Likely acute or chronic cholecystitis. Inflammatory changes present suggesting early some acute inflammation. She has tenderness in the right upper quadrant. I think she has acute cholecystitis. I spoke with Dr. Swift, will consult on patient. Patient will be admitted to medicine. Avery Jj MD May 16, 2016 22:17
[2016-05-16 23:23] VITALS: BP 146/63; TEMP 98.5
[2016-05-16 23:55] VITALS: BP 132/62; PULSE 89; RESP 16; TEMP 98.8; O2SAT 97
[2016-05-17] VITALS (8 sets, daily range): BP systolic 115–133; BP diastolic 56–69; PULSE 76–87; RESP 16–18; TEMP 98.2–99.2; O2SAT 95–97
[2016-05-17] MEDS ORDERED: INSULIN HUMAN REGULAR 1,000 UNITS/10 ML VIAL SQ PRN (01:45)
[2016-05-17] MEDS ORDERED: METOPROLOL TARTRATE 25 MG TAB PO PRN (01:45)
[2016-05-17] MEDS ORDERED: SODIUM CHLORID 0.9% 500 ML IV SCH (01:45)
[2016-05-17] MEDS: LACTATED RINGER'S 1000 ML IV SCH (02:00)
--- NOTE | 2016-05-17 03:42 | HHI.HP ---
[facility] No Primary Care Physician Admission Diagnosis acute cholecystitis Diagnoses: Chief Complaint: Abdominal pain with diarrhea Travel History International Travel<30 Days: No Contact w/Intl Traveler <30 Da: No Traveled to Known Affected Are: No History of Present Illness 71 years old female with history of CAD status post heart catheter and stenting , on aspirin and Brilinta, was sent by the urgent care after she was evaluated for cholecystitis. Patient story started a week ago with mid epigastric pain transferred to the right upper quadrant she went to [facility] and she had a cardiac evaluation which came back negative. pain subsided and patient was sent home, however the pain came right back patient went to urgent care and had a CT of the abdomen which showed (abnormal gallbladder very distended, thick-walled, inflamed, it contains no calcified stones suggesting acute versus chronic cholecystitis and surgical consultation was recommended). So patient was sent to the hospital possible cholecystitis, surgery was consulted from the ED requested admission to medicine with consult. Patient reported having watery profuse diarrhea yesterday, no nausea or vomiting, no lightheadedness, the pain is around 8 out of 10, comes and goes, no alleviating or exacerbating factor. Patient started on antibiotic Review of Systems All 10 systems reviewed and was positive for what is mentioned in history of present illness otherwise negative Past Family Social History Past Medical History Coronary artery disease status post heart catheter Past Surgical History Heart catheterization with stenting Allergies: Coded Allergies: Penicillin (Verified Allergy, Unknown, Hives, 05/09/16) Family History Patient Not aware of medical problems are as in the family Social History Denied tobacco alcohol or illicit drug abuse Physical Exam Vital Signs Vital Signs Date Time Temp Pulse Resp B/P Pulse Ox O2 Delivery O2 Flow Rate FiO2 05/17/16 00:10 85 05/16/16 23:55 98.8 89 16 132/62 97 05/16/16 23:23 98.5 79 16 146/63 98 05/16/16 21:50 16 05/16/16 21:49 98.5 84 16 151/65 99 Room Air 05/16/16 17:00 98.0 107 18 171/74 99 Physical Exam GENERAL: This is a well-nourished, well-developed patient, in no apparent distress. SKIN: No rashes, warm and dry HEAD: Atraumatic. Normocephalic. EYES: Pupils equal round and reactive. Extraocular motions intact. No scleral icterus. ENT: Nose without bleeding, or drainage, Airway patent. NECK: Trachea midline. Supple CARDIOVASCULAR: Regular rate and rhythm without murmurs, gallops, or rubs. RESPIRATORY: Fair air entry bilaterally. No wheezes, rales, or rhonchi. GASTROINTESTINAL: Abdomen soft, non-tender, nondistended. Positive bowel sounds MUSCULOSKELETAL: Extremities without clubbing, cyanosis, or edema. Pedal pulses appreciated NEUROLOGICAL: Awake and alert. Moves all extremity. Normal speech.no focal neurological deficit Laboratory Laboratory Tests Test 05/16/16 05/16/16 19:41 20:15 White Blood Count 11.4 Red Blood Count 4.25 Hemoglobin 12.8 Hematocrit 37.2 Mean Corpuscular Volume 87.6 Mean Corpuscular Hemoglobin 30.1 Mean Corpuscular Hemoglobin 34.4 Concent Red Cell Distribution Width 14.1 Platelet Count 314 Mean Platelet Volume 7.4 Neutrophils (%) (Auto) 80.3 Lymphocytes (%) (Auto) 6.7 Monocytes (%) (Auto) 10.9 Eosinophils (%) (Auto) 1.6 Basophils (%) (Auto) 0.5 Neutrophils # (Auto) 9.1 Lymphocytes # (Auto) 0.8 Monocytes # (Auto) 1.2 Eosinophils # (Auto) 0.2 Basophils # (Auto) 0.1 CBC Comment DIFF FINAL Differential Comment Prothrombin Time 11.0 Prothromb Time International 1.0 Ratio Activated Partial 29.3 Thromboplast Time Sodium Level 136 Potassium Level 4.2 Chloride Level 101 Carbon Dioxide Level 25.4 Anion Gap 10 Blood Urea Nitrogen 11 Creatinine 0.65 Estimat Glomerular Filtration 90 Rate Random Glucose 76 Calcium Level 8.7 Total Bilirubin 0.6 Aspartate Amino Transf 31 (AST/SGOT) Alanine Aminotransferase 37 (ALT/SGPT) Alkaline Phosphatase 136 Total Protein 7.5 Albumin 2.9 Lipase 55 Lactic Acid Level 0.9 Date/Time Procedure Status Source Growth 05/16/16 20:15 Aerobic Blood Culture Received Blood Peripheral Pending 05/16/16 20:15 Anaerobic Blood Culture Received Blood Peripheral Pending Result Diagram: 2/10/17 1941 2/10/[address] abdomen reviewed personally by me as mentioned in history of present illness suggesting acute versus acute on chronic cholecystitis Assessment and Plan Assessment and Plan 71 years old female admitted with abdominal pain and diarrhea and increased alkaline phosphatase Acute versus acute on chronic cholecystitis Leukocytosis with left shift History of coronary artery disease status post heart catheter December 2015 on aspirin and Brilinta : Hypertension Hyperlipidemia DT prophylaxis with SCD Plan: Admit throat pain Consult surgery Iv fluids, Cipro Flagyl iv Pain management with morphine Resume statin, aspirin, Brilinta, lisinopril, metoprolol Add Vasotec when necessary It's better to avoid surgical intervention considering her recent IA and heart catheter stenting and the need for aspirin and Brilinta, unless intervention is highly recommended by general surgery, then consider cardiology consult Discussed Condition With Patient in ED physician Physician Certification 2 Midnight Certification Type: Admission for Inpatient Services Order for Inpatient Services The services are ordered in accordance with Medicare regulations or non- Medicare payer requirements, as applicable. In the case of services not specified as inpatient-only, they are appropriately provided as inpatient services in accordance with the 2-midnight benchmark. Estimated LOS (days): 2 days is the estimated time the patient will need to remain in the hospital, assuming treatment plan goals are met and no additional complications. Post-Hospital Plan: Not yet determined Brooks Springer MD May 17, 2016 03:41
[2016-05-17] MEDS ORDERED: MORPHINE SULFATE 4 MG/ML INJ IV PUSH PRN ×2 (03:45)
[2016-05-17] MEDS ORDERED: ENALAPRILAT 1.25 MG/ML VIAL IV PUSH PRN (03:45)
[2016-05-17] MEDS: metroNIDAZOLE 500 MG INJ 100 ML IV SCH ×3 (04:45→21:59)
[2016-05-17 07:05] LABS: AUTOMATED NEUTROPHIL # 6.4 TH/MM3 (1.8-7.7); BASOPHIL % 0.2 % (0.0-2.0); EOSINOPHIL # 0.2 TH/MM3 (0-0.4); EOSINOPHIL % 2.3 % (0.0-4.0); HEMATOCRIT 35.7 % (35.0-46.0); HEMO FLAGS DIFF FINAL; LYMPH % 8.9 % (9.0-44.0); LYMPHOCYTE # 0.8 TH/MM3 (1.0-4.8); MEAN CORPUSCULAR HEMOGLOBIN 29.8 PG (27.0-34.0); MEAN CORPUSCULAR HGB CONC 33.4 % (32.0-36.0); MONO % 12.9 % (0.0-8.0); NEUT % 75.7 % (16.0-70.0); PLATELET COUNT 275 TH/MM3 (150-450); RED BLOOD COUNT 4.01 MIL/MM3 (4.00-5.30); RED CELL DISTRIBUTION WIDTH 14.1 % (11.6-17.2); WHITE BLOOD COUNT 8.4 TH/MM3 (4.0-11.0)
[2016-05-17 07:18] LABS: BICARBONATE 22.5 MEQ/L (21.0-32.0); POTASSIUM 3.6 MEQ/L (3.5-5.1)
[2016-05-17 07:20] LABS: INDIRECT BILIRUBIN 0.4 MG/DL (0.0-0.8); TOTAL BILIRUBIN ADULT 0.5 MG/DL (0.2-1.0)
[2016-05-17] MEDS ORDERED: DOCUSATE SODIUM 100 MG CAP PO PRN (07:45)
[2016-05-17] MEDS ORDERED: GLUCAGON 1 MG/ML VIAL OTHER PRN (07:45)
[2016-05-17] MEDS ORDERED: DEXTROSE 50% IN WATER 50 ML VIAL(D50) IV PUSH PRN (07:45)
[2016-05-17] MEDS ORDERED: NITROGLYCERIN 0.4 MG SL 25 TABS/BTL SL PRN (07:45)
[2016-05-17] MEDS: PANTOPRAZOLE SOD 20 MG DELAYED RELEASE TAB PO SCH (08:49)
[2016-05-17] MEDS: ASPIRIN EC 81 MG TABEC PO SCH (08:49)
[2016-05-17] MEDS: METOPROLOL SUCCINATE 25 MG EXTENDED RELEASE TAB PO SCH (08:49)
[2016-05-17] MEDS ORDERED: LISINOPRIL 10 MG TAB PO SCH (09:00)
[2016-05-17] MEDS: TICAGRELOR 90 MG TAB PO SCH ×3 (09:00→21:59)
[2016-05-17] MEDS: SODIUM CHLORIDE 0.9% FLUSH 5 ML FLUSH FLUSH SCH ×2 (09:05→21:59)
[2016-05-17] MEDS: NS + KCL 20 MEQ INJ 1,000 ML IV SCH ×2 (09:06→21:16)
[2016-05-17] MEDS: CIPROFLOXACIN 400 MG PREMIX 200 ML IV SCH ×2 (09:09→21:59)
--- NOTE | 2016-05-17 10:02 | HHI.PR ---
Subjective Remarks Follow-up cholecystitis. Denies abdominal pain. Also reports diarrhea has stopped. Discussed with RN Objective Vitals Vital Signs Date Time Temp Pulse Resp B/P Pulse Ox O2 Delivery O2 Flow Rate FiO2 05/17/16 08:00 99.0 83 18 119/62 96 05/17/16 04:00 99.2 87 16 115/56 97 05/17/16 00:10 85 05/16/16 23:55 98.8 89 16 132/62 97 05/16/16 23:23 98.5 79 16 146/63 98 05/16/16 21:50 16 05/16/16 21:49 98.5 84 16 151/65 99 Room Air 05/16/16 17:00 98.0 107 18 171/74 99 I/O 05/16/16 05/16/16 05/16/16 05/17/16 05/17/16 05/17/16 07:00 15:00 23:00 07:00 15:00 23:00 Intake Total 0 ml Balance 0 ml Intake Oral 0 ml # Voids 2 # Bowel Movements 2 Result Diagram: 05/17/16 0555 05/17/16 0555 Objective Remarks GENERAL: Well-developed, well-nourished in no distress SKIN: Warm and dry. HEAD: Atraumatic. Normocephalic. EYES: Pupils equal and round. No scleral icterus. No injection or drainage. ENT: No nasal bleeding or discharge. Mucous membranes pink and moist. NECK: Trachea midline. No JVD. CARDIOVASCULAR: Regular rate and rhythm. RESPIRATORY: No accessory muscle use. Clear to auscultation. Breath sounds equal bilaterally. GASTROINTESTINAL: Abdomen soft, positive Daley's, nondistended. MUSCULOSKELETAL: Extremities without clubbing, cyanosis, or edema. No obvious deformities. NEUROLOGICAL: Awake and alert. No obvious cranial nerve deficits. Motor grossly within normal limits. Five out of 5 muscle strength in the arms and legs. Normal speech. PSYCHIATRIC: Appropriate mood and affect; insight and judgment normal. A/P Problem List: (1) Coronary artery disease ICD Code: I25.10 Status: Acute Assessment and Plan 71 years old female admitted with abdominal pain and diarrhea and increased alkaline phosphatase Acute versus acute on chronic cholecystitis. Continue nothing by mouth, IV hydration, IV Cipro, Flagyl and pain management counseled regarding narcotics. Awaiting Gen. surgery Consultation Leukocytosis with left shift secondary to above. History of coronary artery disease status post heart catheter December 2015 on aspirin and Brilinta : Denies chest pain. Continue beta derrick Hypertension. Stable Hyperlipidemia. Stable DT prophylaxis with SCD and subcutaneous heparin Discharge Planning Per general surgery Antolin Sneed MD May 17, 2016 10:02
[2016-05-17] MEDS ORDERED: HYDR-3533 PO (10:03)
--- NOTE | 2016-05-17 10:04 | HHI.DCPOC ---
Discharge Care Plan Diagnosis: (1) Coronary artery disease Your Health Problems Are: Difficulty with ADL Exercise Tolerance Goals to Promote Your Health * To prevent worsening of your condition and complications * To maintain your health at the optimal level Directions to Meet Your Goals Take your medications as prescribed Follow your dietary instruction Follow activity as directed Keep your appointments as scheduled Take your immunizations and boosters as scheduled If your symptoms worsen call your PCP, if no PCP go to Urgent Care Center or Emergency Room Smoking is Dangerous to Your Health. Avoid second hand smoke Call the 24-hour hour crisis hotline for domestic abuse at Antolin Sneed MD May 17, 2016 10:04
--- NOTE | 2016-05-17 13:05 | EKG ---
Date Performed: 05/16/2016 Time Performed: 20:08:16 PTAGE: 71 years EKG: Sinus rhythm POSSIBLE LEFT ATRIAL ENLARGEMENT BORDERLINE ECG PREVIOUS TRACING : 05/10/2016 04.35 Compared to previous tracing, sinus rate has increased DOCTOR: Bola Deiv Interpretating Date/Time 05/17/2016 13:00:15
[2016-05-17] MEDS: HEPARIN SODIUM - SQ 10,000 UNITS/ML VIAL SQ SCH ×2 (13:56→21:59)
--- NOTE | 2016-05-17 17:31 | MB ---
cc: PAT GUTIERREZ MD DATE OF CONSULTATION: 05/17/2016. REASON FOR CONSULTATION: Preoperative evaluation. HISTORY OF PRESENT ILLNESS: The patient is a very pleasant 71-year-old woman from [place] who has a history of a myocardial infarction last December with subsequent drug-eluting stent placement to the LAD and left circumflex. She was down here visiting and began developing central chest discomfort / right upper quadrant pain and was actually admitted to the chest pain center last week at which time she had a nonischemic nuclear stress test and was discharged home. However, she began having worsening pain becoming more localized to the right upper quadrant and she apparently had an outpatient CT scan of the abdomen that showed a very distended, thick-walled inflamed gallbladder consistent with acute versus chronic cholecystitis. Currently the patient continues to have a relatively controlled right upper quadrant tenderness. No significant chest discomfort, lightheadedness, dizziness, shortness of breath or syncope. PAST MEDICAL HISTORY: 1. Coronary artery disease as detailed above. 2. Hypertension. CURRENT MEDICATIONS: 1. Atorvastatin 80 milligrams at bedtime. 2. Lisinopril 10 milligrams daily. 3. Ciprofloxacin. 4. Aspirin 81 milligrams daily. 5. Toprol XL 25 milligrams daily 6. Protonix 20 milligrams daily. 7. Brilinta 90 milligrams twice a day. ALLERGIES: Penicillin. PHYSICAL EXAMINATION: VITAL SIGNS: Afebrile, pulse 76, respiratory rate 18, blood pressure 129/69, satting 96% on two liters. GENERAL: In general, a very pleasant well-appearing woman in no distress. NECK: No jugular venous distention. LUNGS: Clear to auscultation bilaterally. CARDIOVASCULAR: Regular rate and rhythm. No murmurs appreciated. ABDOMEN: Mild right upper quadrant tenderness without guarding or rebound. EXTREMITIES: No edema. LABORATORY DATA: White count 8.4 down from 11.4, hematocrit 35.7, platelets 275,000. Sodium 138, potassium 3.6, chloride 103, bicarbonate 22.5, BUN 10, creatinine 0.52. EKGS: EKG shows sinus rhythm with no significant S-T or T wave changes. IMPRESSION: 1. Preop evaluation. The patient unfortunately had a drug-eluting stent placed mid December of last year which does mean that ideally she would have continuous Brilinta through at least six months, if not a year. If she required cessation of her Brilinta for emergency surgery, that would be doable, though certainly with higher risk of acute / subacute stent thrombosis; however, it does not appear that this is an emergent situation. If the cholecystectomy or a decompression type procedure could be performed on Brilinta, I would consider that an acceptable cardiovascular risk if the bleeding risk was acceptable with the surgeon. Alternatively, if the patient can be medically treated until at least the six months alana, I believe that would be her safest bet from a cardiovascular standpoint. She did have a nonischemic nuclear stress test only last week, which is helpful. However, the main risk in this situation would be the acute / subacute stent thrombosis, which would occur with cessation of her antiplatelet regimen. I will be available on an as-needed basis should any questions arise. Thank you for the opportunity to participate in this patient's care. MD BRI Douglas/ABBE /3:00 PM /5:25 PM
[2016-05-17] MEDS: LISINOPRIL 10 MG TAB PO SCH (21:58)
[2016-05-17] MEDS: ATORVASTATIN 80 MG TAB PO SCH (21:58)
[2016-05-18] VITALS (7 sets, daily range): BP systolic 103–118; BP diastolic 51–70; PULSE 68–78; RESP 18; TEMP 97.4–98.6; O2SAT 95–99
[2016-05-18] MEDS: LACTATED RINGER'S 1000 ML IV SCH (02:00)
--- NOTE | 2016-05-18 04:59 | MB ---
cc: HANNA HOUSTON MD DATE OF CONSULTATION: 05/17/2016 REASON FOR CONSULTATION: Rule out acute cholecystitis. HISTORY OF PRESENT ILLNESS The patient is a 71-year-old female who presented to the emergency department complaining of acute onset of abdominal pain. The patient has multiple medical issues including coronary artery disease, cardiac stents, recent OR in December on aspirin and Brilinta. The patient stated that the pain started in the right upper quadrant epigastrium approximately a week ago. She was seen at [facility] for further evaluation and cardiac evaluation which cardiac workup was negative. She was sent home. She came back for further evaluation to the Urgent Care including evaluation and CT scan showing a very distended gallbladder, thickened wall inflamed, without evidence of gallstones. Therefore surgery was consulted for further evaluation. On my exam the patient is resting comfortably. She states the pain started approximately Thursday and noted acute onset of abdominal pain. Initially it was 8 out of 10 with some improvement with IV pain medication. She does know any relation to food. She has had decreased p.o. intake and has not really taken much because she does not really feel like eating. She does deny nausea and vomiting. She did have some episodes of diarrhea. She denies fever or chills. She states the pain comes and goes and was somewhat frustrated with multiple attempts at workup without resolution. PAST MEDICAL HISTORY: Coronary artery disease. OR. Stents. PAST SURGICAL HISTORY: Cardiac stents. ALLERGIES PENICILLIN SOCIAL HISTORY The patient denies smoking, ETOH or IVDA. FAMILY HISTORY Denies diabetes, coronary artery disease. MEDICATIONS: See EMR. Brilinta and aspirin. REVIEW OF SYSTEMS General: The patient denies fever. HEENT: Denies eye pain, ear pain, scleral icterus. Respiration: Denies cough or wheeze. Cardiac: Denies palpitation. Complained of history of OR. Abdomen: Complained of pain. Denies nausea, vomiting. : Denies dysuria, hematuria. Extremities: Denies arthralgia, myalgia. Endocrine: Denies polyuria, polydipsia. Psych: Denies change in mood or sensorium. Neuro: Denies numbness or tingling. PHYSICAL EXAMINATION General: The patient is in no acute distress. VITAL SIGNS: Temperature 98.8, respirations the 16. 97% on room air. Blood pressure 132/62. HEENT: PERRLA, EOMI. Atraumatic, normocephalic. Neck: Supple. Trachea midline. Lungs: Bilateral expansion. Heart: S1-S2, regular rhythm. Abdomen: Soft, positive tenderness to palpation right upper quadrant. No rebound. Nondistended. Extremities: Warm, well-perfused. Integument: No obvious masses or lesions. Psych: Good judgment. Neuro: GCS of 15, A&O x4. LABORATORY AND DIAGNOSTIC DATA WBC 11.4, hemoglobin 12.8, hematocrit 37.2, platelets 314, sodium 136, potassium 4.2, chloride 101, BUN 11, creatinine 0.65, T bili 0.6, AST 31, ALT 37, alk phos 136, lipase 55, INR 1, PT 11, PTT 29.3. IMAGING STUDIES From [place] showing distended and thickened gallbladder without evidence of stones. ASSESSMENT The patient with right upper quadrant pain and concern for acute cholecystitis, acalculous. After full clinical, radiologic laboratory workup, the patient with above-named complaints including right lower quadrant abdominal pain with distended thickened gallbladder and possible cholecystitis. PLAN: The patient with symptomatology somewhat consistent for gallbladder etiology. She has been evaluated from a cardiac standpoint with a recent stress test. However, given the patient's recent OR and stent placement, the patient may be at risk for surgical intervention. We will discuss with cardiology to evaluate the patient for risk stratification. The patient may warrant possible surgical intervention versus cholecystostomy tube, versus management with nonoperative and antibiotics. Will need HIDA scan. This was discussed with the patient in detail. The patient stated understanding, agreed, and would like to proceed. MD MU Pimentel/CRISTY /8:27 PM /3:53 AM SAMMI
[2016-05-18] MEDS: metroNIDAZOLE 500 MG INJ 100 ML IV SCH ×3 (05:40→21:26)
[2016-05-18] MEDS: HEPARIN SODIUM - SQ 10,000 UNITS/ML VIAL SQ SCH ×3 (05:40→21:27)
[2016-05-18 07:56] LABS: BICARBONATE 24.7 MEQ/L (21.0-32.0); MAGNESIUM 2.2 MG/DL (1.5-2.5); POTASSIUM 3.7 MEQ/L (3.5-5.1)
[2016-05-18] MEDS: CIPROFLOXACIN 400 MG PREMIX 200 ML IV SCH ×2 (08:51→21:26)
[2016-05-18] MEDS: METOPROLOL SUCCINATE 25 MG EXTENDED RELEASE TAB PO SCH (08:52)
[2016-05-18] MEDS: NS + KCL 20 MEQ INJ 1,000 ML IV SCH (08:52)
[2016-05-18] MEDS: PANTOPRAZOLE SOD 20 MG DELAYED RELEASE TAB PO SCH (08:52)
[2016-05-18] MEDS: SODIUM CHLORIDE 0.9% FLUSH 5 ML FLUSH FLUSH SCH ×2 (08:52→21:26)
[2016-05-18] MEDS: TICAGRELOR 90 MG TAB PO SCH ×2 (08:52→21:26)
[2016-05-18] MEDS: ASPIRIN EC 81 MG TABEC PO SCH (08:52)
[2016-05-18] MEDS ORDERED: ACETAMINOPHEN/HYDROcodone 325 MG/5 MG TAB PO PRN (09:45)
[2016-05-18] MEDS ORDERED: ACETAMINOPHEN/HYDROcodone 325 MG/10 MG TAB PO PRN (09:45)
--- NOTE | 2016-05-18 12:58 | HHI.PR ---
Subjective Remarks Follow-up cholecystitis. Improved abdominal pain but patient has not been eating. Seen in nuclear medicine. Discussed with general surgery. Discussed with RN Objective Vitals Vital Signs Date Time Temp Pulse Resp B/P Pulse Ox O2 Delivery O2 Flow Rate FiO2 05/18/16 08:00 98.0 68 18 107/58 95 05/18/16 04:00 98.5 76 18 118/56 95 05/18/16 00:00 98.4 78 18 104/51 96 05/17/16 21:00 80 05/17/16 20:00 98.5 79 18 128/58 97 05/17/16 16:00 98.2 79 18 133/64 96 I/O 05/17/16 05/17/16 05/17/16 05/18/16 05/18/16 05/18/16 07:00 15:00 23:00 07:00 15:00 23:00 Intake Total 0 ml 1268 ml 400 ml Balance 0 ml 1268 ml 400 ml Intake Oral 0 ml 720 ml IV Total 548 ml 400 ml # Voids 2 4 1 # Bowel Movements 2 0 0 Result Diagram: 05/17/16 0555 05/18/16 0703 Objective Remarks GENERAL: Well-developed, well-nourished in no distress SKIN: Warm and dry. HEAD: Atraumatic. Normocephalic. EYES: Pupils equal and round. No scleral icterus. No injection or drainage. ENT: No nasal bleeding or discharge. Mucous membranes pink and moist. NECK: Trachea midline. No JVD. CARDIOVASCULAR: Regular rate and rhythm. RESPIRATORY: No accessory muscle use. Clear to auscultation. Breath sounds equal bilaterally. GASTROINTESTINAL: Abdomen soft, positive Daley's, nondistended. MUSCULOSKELETAL: Extremities without clubbing, cyanosis, or edema. No obvious deformities. NEUROLOGICAL: Awake and alert. No obvious cranial nerve deficits. Motor grossly within normal limits. Five out of 5 muscle strength in the arms and legs. Normal speech. PSYCHIATRIC: Appropriate mood and affect; insight and judgment normal. Procedures none A/P Problem List: (1) Coronary artery disease ICD Code: I25.10 Status: Acute Assessment and Plan 71 years old female admitted with abdominal pain and diarrhea and increased alkaline phosphatase Acute versus acute on chronic cholecystitis. Improved abdominal pain. Continue IV Cipro, Flagyl and pain management counseled regarding narcotics. Follow-up pending the scan. Further management per general surgery. Agree with cardiology since this is not an emergent case, we'll hold off with any procedures that would require discontinuation of antiplatelets as patient needs status post recent cardiac stenting Leukocytosis with left shift secondary to above. Improved History of coronary artery disease status post heart catheter December 2015 on aspirin and Brilinta : Denies chest pain. Continue beta derrick Hypertension. Stable Hyperlipidemia. Stable DT prophylaxis with SCD and subcutaneous heparin Discharge Planning Per general surgery. If no surgery, restart diet and if tolerated discharge home Antolin Sneed MD May 18, 2016 12:58
--- NOTE | 2016-05-18 13:35 | RADRPT ---
EXAM DATE/TIME: 05/18/2016 10:05 This report includes an Addendum and supersedes previous reports for this exam. [facility] COMPARISON: No previous studies available for comparison. INDICATIONS : Abdominal pain for 1 week. DOSE: 4.1 mCi Tc99m Mebrofenin IV MEDICAL HISTORY : Myocardial infarction. Coronary artery disease. SURGICAL HISTORY : Tubal ligation. section. ENCOUNTER: Initial ACUITY: 1 week PAIN SCALE: 8/10 LOCATION: Right upper quadrant TECHNIQUE: Following the intravenous administration of radiotracer, dynamic sequential images were performed wit h continuous acquisition. FINDINGS: HEPATIC KINETICS: There is prompt uptake of radiotracer in the liver. No focal defects are seen. There is normal rate of washout from the hepatic parenchyma. BILIARY CLEARANCE: Activity is first seen in the extrahepatic biliary system at 10 minutes. There is normal excretion i nto the small bowel. GALLBLADDER: The gallbladder is never visualized. BILIARY ENTRIC REFLUX: None observed. CONCLUSION: 1. The gallbladder is never visualized. This can be seen with acute or chronic cholecystitis. 2. There is no biliary tract obstruction with good drainage into the small bowel. 3. A 24-hour delayed scan will be performed. Ricardo Almanza MD on May 18, 2016 at 13:31 Board Certified Radiologist. This report was verified electronically. ADDENDUM: 24-hour delayed imaging is provided. The gallbladder is not identified. In the appropriate clinical s etting, this would suggest cholecystitis. Sameer Rao MD on May 19, 2016 at 8:10 Board Certified Radiologist. This report was verified electronically.
[2016-05-18] MEDS: LISINOPRIL 10 MG TAB PO SCH (21:28)
[2016-05-18] MEDS: ATORVASTATIN 80 MG TAB PO SCH (21:29)
[2016-05-19] VITALS: BP 111/60; PULSE 76; RESP 18; TEMP 97.2; O2SAT 98
[2016-05-19] MEDS: LACTATED RINGER'S 1000 ML IV SCH (00:52)
[2016-05-19 04:00] VITALS: BP 100/48; PULSE 68; RESP 16; TEMP 97.6; O2SAT 97
[2016-05-19] MEDS: HEPARIN SODIUM - SQ 10,000 UNITS/ML VIAL SQ SCH ×2 (05:16→14:00)
[2016-05-19] MEDS: metroNIDAZOLE 500 MG INJ 100 ML IV SCH ×2 (05:16→11:22)
[2016-05-19] MEDS: PANTOPRAZOLE SOD 20 MG DELAYED RELEASE TAB PO SCH (07:39)
[2016-05-19] MEDS: ASPIRIN EC 81 MG TABEC PO SCH (07:39)
[2016-05-19] MEDS: TICAGRELOR 90 MG TAB PO SCH (07:40)
[2016-05-19] MEDS: METOPROLOL SUCCINATE 25 MG EXTENDED RELEASE TAB PO SCH (07:40)
[2016-05-19] MEDS: SODIUM CHLORIDE 0.9% FLUSH 5 ML FLUSH FLUSH SCH (07:42)
[2016-05-19 08:00] VITALS: BP 121/61; PULSE 67; RESP 16; TEMP 96.7; O2SAT 96
[2016-05-19] MEDS: CIPROFLOXACIN 400 MG PREMIX 200 ML IV SCH (09:54)
[2016-05-19 10:47] VITALS: PULSE 67
[2016-05-19 11:25] VITALS: BP 146/72; PULSE 74; RESP 16; TEMP 97; O2SAT 97
[2016-05-19] MEDS ORDERED: CIPR-9 PO ×2 (12:18→12:37)
[2016-05-19] MEDS ORDERED: METR-1 PO ×2 (12:18→12:37)
--- NOTE | 2016-05-19 12:42 | HHI.DS ---
Discharge Summary Admission Date May 16, 2016 at 10:16 pm Discharge Date: May 19, 2016 Admitting Diagnosis acute cholecystitis (1) Coronary artery disease ICD Code: I25.10 (2) Acute cholecystitis ICD Code: K81.0 Diagnosis: Principal Procedures none Brief History - From Admission 71 years old female with history of CAD status post heart catheter and stenting , on aspirin and Brilinta, was sent by the urgent care after she was evaluated for cholecystitis. Patient story started a week ago with mid epigastric pain transferred to the right upper quadrant she went to [facility] and she had a cardiac evaluation which came back negative. pain subsided and patient was sent home, however the pain came right back patient went to urgent care and had a CT of the abdomen which showed (abnormal gallbladder very distended, thick-walled, inflamed, it contains no calcified stones suggesting acute versus chronic cholecystitis and surgical consultation was recommended). So patient was sent to the hospital possible cholecystitis, surgery was consulted from the ED requested admission to medicine with consult. Patient reported having watery profuse diarrhea yesterday, no nausea or vomiting, no lightheadedness, the pain is around 8 out of 10, comes and goes, no alleviating or exacerbating factor. Patient started on antibiotic CBC/BMP: 05/17/16 0555 05/18/16 0703 Significant Findings Laboratory Tests Test 05/16/16 05/17/16 05/18/16 19:41 05:55 07:03 White Blood Count 11.4 TH/MM3 (4.0-11.0) Neutrophils (%) (Auto) 80.3 % 75.7 % (16.0-70.0) (16.0-70.0) Lymphocytes (%) (Auto) 6.7 % 8.9 % (9.0-44.0) (9.0-44.0) Monocytes (%) (Auto) 10.9 % 12.9 % (0.0-8.0) (0.0-8.0) Neutrophils # (Auto) 9.1 TH/MM3 (1.8-7.7) Lymphocytes # (Auto) 0.8 TH/MM3 0.8 TH/MM3 (1.0-4.8) (1.0-4.8) Monocytes # (Auto) 1.2 TH/MM3 1.1 TH/MM3 (0-0.9) (0-0.9) Alkaline Phosphatase 136 U/L (45-117) Albumin 2.9 GM/DL 2.6 GM/DL (3.4-5.0) (3.4-5.0) Lipase 55 U/L (73-393) Calcium Level 8.4 MG/DL (8.5-10.1) Imaging Last Impressions Hepatobiliary Scan Nuclear Medicine 05/18/16 0000 Signed Impressions: Service Date/Time: Wednesday, May 18, 2016 10:05 - CONCLUSION: 1. The gallbladder is never visualized. This can be seen with acute or chronic cholecystitis. 2. There is no biliary tract obstruction with good drainage into the small bowel. 3. A 24-hour delayed scan will be performed. Ricardo Almanza MD ADDENDUM: 24-hour delayed imaging is provided. The gallbladder is not identified. In the appropriate clinical setting, this would suggest cholecystitis. Sameer Rao MD PE at Discharge GENERAL: Well-developed, well-nourished in no distress SKIN: Warm and dry. HEAD: Atraumatic. Normocephalic. EYES: Pupils equal and round. No scleral icterus. No injection or drainage. ENT: No nasal bleeding or discharge. Mucous membranes pink and moist. NECK: Trachea midline. No JVD. CARDIOVASCULAR: Regular rate and rhythm. RESPIRATORY: No accessory muscle use. Clear to auscultation. Breath sounds equal bilaterally. GASTROINTESTINAL: Abdomen soft, positive Daley's, nondistended. MUSCULOSKELETAL: Extremities without clubbing, cyanosis, or edema. No obvious deformities. NEUROLOGICAL: Awake and alert. No obvious cranial nerve deficits. Motor grossly within normal limits. Five out of 5 muscle strength in the arms and legs. Normal speech. PSYCHIATRIC: Appropriate mood and affect; insight and judgment normal. Pt update on day of discharge Patient is doing well. No acute concerns. Due to recent cardiac stent placement , patient is advised to wait for one full year since stent placement. Patient agreed and after discussing with surgery, patient is being discharged. Hospital Course 71 years old female admitted with abdominal pain and diarrhea and increased alkaline phosphatase Acute versus acute on chronic cholecystitis. Improved abdominal pain. Continue IV Cipro, Flagyl and pain management counseled regarding narcotics. Follow-up pending the scan. Further management per general surgery. Agree with cardiology since this is not an emergent case, we'll hold off with any procedures that would require discontinuation of antiplatelets as patient needs status post recent cardiac stenting Leukocytosis with left shift secondary to above. Improved History of coronary artery disease status post heart catheter December 2015 on aspirin and Brilinta : Denies chest pain. Continue beta derrick On the day of discharge, I discussed with surgery attending who agreed with total of two weeks of abx (Cipro and Flagyl) and follow up with him in the office in one week. Patient was subsequently discharged home. Patient was advised to continue Brilinta, low dose aspirin as well as other cardiac medications. Pt Condition on Discharge: Good Discharge Disposition: Discharge Home Discharge Time: > 30 minutes Discharge Instructions DIET: Follow Instructions for: Heart Healthy Diet Additional Diet Instructions: Low fat diet. Thank you. Activities you can perform: Regular-No Restrictions Follow up Referrals: Cardiology - 1 Week PCP Follow-up - 1 Week Surgical - 1 Week New Medications: Ciprofloxacin (Cipro) 500 Mg Tab 500 MG PO BID Infection #12 Ref 0 TAB Hydrocodone-Acetaminophen (Lortab) 5-325 Mg Tab 1 TAB PO Q6H PRN PAIN #28 Ref 0 TAB Metronidazole (Flagyl) 500 Mg Tab 500 MG PO TID Infection #36 Ref 0 TAB Continued Medications: Aspirin (Aspirin) 81 Mg Tabdr 81 MG PO DAILY TAB Atorvastatin (Atorvastatin) 80 Mg Tab 80 MG PO HS Cholesterol Management #30 Ref 0 TAB Cholecalciferol (Vitamin D3) 2,000 Unit Tab 2000 UNITS PO DAILY Nutritional Supplement #1 Ref 0 BOTTLE Lisinopril (Lisinopril) 10 Mg Tab 10 MG PO DAILY #30 Ref 0 TAB Metoprolol Succinate ER 24 HR (Metoprolol Succinate ER 24 HR) 25 Mg Tab 25 MG PO DAILY #30 Ref 0 TAB Nitroglycerin SL (Nitrostat SL) 0.4 Mg Subl 0.4 MG SL DIRECTED 1 tablet under the tongue as needed for chest pain. Repeat every 5 minutes for a total of 3 DOSES or call 911 if NO relief. PRN CHEST PAIN #100 Ref 0 TAB.SL Omeprazole (Omeprazole) 20 Mg Tab 20 MG PO DAILY #30 Ref 0 TAB Ticagrelor (Brilinta) 90 Mg Tab 90 MG PO BID Blood Clot Prevention #60 Ref 0 TAB Tereza Redman DO May 19, 2016 12:42
== END 2016-05-19 15:10 | disposition home or self-care (01) | DRG 446 ==
LOC: NETRI 16:58 → NEDA 22:16 → N06B 23:38
PROVIDERS: ADMIT Hospitalist; ATTEND Hospitalist
DX: K81.2 Acute cholecystitis with chronic cholecystitis (principal); I10 Essential (primary) hypertension; I25.10 Atherosclerotic heart disease of native coronary artery without angina pectoris; I25.2 Old myocardial infarction; R19.7 Diarrhea, unspecified; E78.5 Hyperlipidemia, unspecified; Z95.5 Presence of coronary angioplasty implant and graft; Z88.0 Allergy status to penicillin
CPT/HCPCS: 78226; 80048; 80053; 80076; 82948; 83605; 83690; 83735; 85025; 85610; 85730; 87040; 93005; 96365; 96367; A9537; J0744; J1644; J1956; J3480

== ENCOUNTER 2016-10-12 19:19 | Observation (INO) | payer MEDICARE, BC ==
[~2016-10-12] VITALS: Ht 157.5 cm; Wt 65.0 kg
[~2016-10-12 19:19] MED LIST changes: +CIPR-9 PO; +HYDR-3533 PO; +METR-1 PO; +OMEP20TA PO
[2016-10-12] MEDS ORDERED: SODIUM CHLORID 0.9% 500 ML INJ 500 ML IV ONE (19:30)
[2016-10-12] MEDS ORDERED: MORPHINE SULFATE 4 MG/ML INJ IV PUSH ONE (19:30)
[2016-10-12] MEDS ORDERED: ONDANSETRON HCL 4 MG/2 ML VIAL IV PUSH ONE (19:30)
[2016-10-12] MEDS ORDERED: ASPI81CH37 CHEW (19:39)
[2016-10-12] MEDS ORDERED: CHOL20005 PO (19:39)
[2016-10-12] MEDS ORDERED: BIOT10TA PO (19:39)
[2016-10-12 19:40] VITALS: BP 146/67; PULSE 66; RESP 16; TEMP 98; O2SAT 98
[2016-10-12 19:43] VITALS: BP_SYST 124; BP_SYST 146; BP_DIAS 61; BP_DIAS 67
[2016-10-12 20:07] LABS: AUTOMATED NEUTROPHIL # 6.6 TH/MM3 (1.8-7.7); BASOPHIL % 0.3 % (0.0-2.0); EOSINOPHIL % 0.5 % (0.0-4.0); HEMATOCRIT 39.7 % (35.0-46.0); HEMO FLAGS DIFF FINAL; LYMPH % 18.3 % (9.0-44.0); LYMPHOCYTE # 1.7 TH/MM3 (1.0-4.8); MEAN CELL VOLUME 89.4 FL (80.0-100.0); MEAN CORPUSCULAR HEMOGLOBIN 30.2 PG (27.0-34.0); MEAN CORPUSCULAR HGB CONC 33.7 % (32.0-36.0); MONO % 11.4 % (0.0-8.0); NEUT % 69.5 % (16.0-70.0); PLATELET COUNT 226 TH/MM3 (150-450); RED BLOOD COUNT 4.43 MIL/MM3 (4.00-5.30); WHITE BLOOD COUNT 9.4 TH/MM3 (4.0-11.0)
--- NOTE | 2016-10-12 20:14 | RADRPT ---
EXAM DATE/TIME: 10/12/2016 19:33 [facility] COMPARISON: CHEST SINGLE AP, May 09, 2016, 19:41. INDICATIONS : Chest pain MEDICAL HISTORY : Myocardial infarction. Coronary artery disease. SURGICAL HISTORY : Coronary artery stent. Myocardial infarction. Coronary artery disease. ENCOUNTER: Initial ACUITY: 1 day PAIN SCORE: 5/10 LOCATION: Bilateral chest FINDINGS: A single view of the chest demonstrates the lungs to be symmetrically aerated without evidence of mas s, infiltrate or effusion. The cardiomediastinal contours are unremarkable. Osseous structures are intact. CONCLUSION: No acute disease. Randy Hernandez MD on October 12, 2016 at 20:12 Board Certified Radiologist. This report was verified electronically.
--- NOTE | 2016-10-12 20:28 | PD ---
HPI Chief Complaint: Chest Pain Time Seen by Provider: 19:28 Travel History International Travel<30 days: No Contact w/Intl Traveler<30days: No Traveled to known affect area: No History of Present Illness HPI 82-year-old female came to the emergency room brought by EMS with history of epigastric pain that started at 10 this morning. Patient says that she took one hydrocodone at noon but then 2 hours prior to calling 911 the pain got very severe. Patient has history of coronary artery disease and had stent put in December of last year. She was not sure if this pain was related to her heart. Patient had similar pain 5 months ago and was admitted in this hospital and had cardiac as well as gallbladder workup done. She looked anxious and in distress. Patient was slightly tachycardic. She had received 500 cc of fluid bolus by EMS. Their twelve-lead EKG was nonspecific. Patient is on Brilynta as an anticoagulant. PFSH Past Medical History Narrative Medical List of her past medical, surgical, social and family history is reviewed from the nursing note. Hx Anticoagulant Therapy: Yes (BRILINTA) Arthritis: No Asthma: No Autoimmune Disease: No Anxiety: No Depression: No Heart Rhythm Problems: No Cancer: No Cardiac Catheterization: Yes (DEC 2015) Cardiovascular Problems: Yes High Cholesterol: Yes Chemotherapy: No Chest Pain: Yes Congestive Heart Failure: No COPD: No Cerebrovascular Accident: No Coronary Artery Disease: Yes Diabetes: No Diminished Hearing: No Endocrine: No Gastrointestinal Disorders: Yes GERD: No Genitourinary: No Hiatal Hernia: No Immune Disorder: No Implanted Vascular Access Dvce: Yes Kidney Stones: No Musculoskeletal: No Neurologic: No Psychiatric: No Reproductive: No Respiratory: No Migraines: No Myocardial Infarction: Yes (DEC 2015) Radiation Therapy: No Renal Failure: No Seizures: No Sickle Cell Disease: No Sleep Apnea: No Thyroid Disease: No Ulcer: No Tetanus Vaccination: < 5 Years ?: Not Menopausal: Yes : 3 Para: 2 Miscarriage: 1 Tubal Ligation: Yes Past Surgical History Abdominal Surgery: No AICD: No Arteriovenous Shunt: No Body Medical Devices: CARDIAC STENT X2 Cardiac Surgery: Yes (CARDIAC STENT X2) Section: Yes (X2) Coronary Stent: Yes (X2) Ear Surgery: No Endocrine Surgery: No Eye Surgery: No Genitourinary Surgery: No Gynecologic Surgery: Yes ( X2, TUBAL LIGATION) Insulin Pump: No Joint Replacement: No Oral Surgery: Yes (TONSILLECTOMY) Pacemaker: No Thoracic Surgery: No Tonsillectomy: Yes Other Surgery: Yes Social History Alcohol Use: Yes ("OCCASIONALLY") Tobacco Use: No Substance Use: No Allergies-Medications (Allergen,Severity, Reaction): Coded Allergies: Penicillin (Verified Allergy, Unknown, Hives, 10/12/16) Comments List of her allergies reviewed from the nursing note Reported Meds & Prescriptions Reported Meds & Active Scripts Active Lortab (Hydrocodone-Acetaminophen) 5-325 Mg Tab 1 Tab PO Q6H PRN Reported D3 Super Strength (Cholecalciferol) 2,000 Unit Cap 2,000 Units PO DAILY Biotin 10 Mg Tab 10 Mg PO DAILY Aspirin Low Dose (Aspirin) 81 Mg Chew 81 Mg CHEW DAILY Nitrostat SL (Nitroglycerin) 0.4 Mg Subl 0.4 Mg SL DIRECTED PRN 1 tablet under the tongue as needed for chest pain. Repeat every 5 minutes for a total of 3 DOSES or call 911 if NO relief. Metoprolol Succinate ER 24 HR (Metoprolol Succinate) 25 Mg Tab 25 Mg PO DAILY Lisinopril 10 Mg Tab 10 Mg PO DAILY Brilinta (Ticagrelor) 90 Mg Tab 90 Mg PO BID Narrative Medication List of her home medications reviewed from the nursing note. Review of Systems Except as stated in HPI: all other systems reviewed are Neg Physical Exam Narrative GENERAL: Awake, alert, anxious, moderate distress SKIN: Focused skin assessment warm/dry. Pale HEAD: Atraumatic. Normocephalic. EYES: Pupils equal and round. No scleral icterus. No injection or drainage. ENT: No nasal bleeding or discharge. Mucous membranes pink and moist. NECK: Trachea midline. No JVD. CARDIOVASCULAR: Regular rate and rhythm. No murmur appreciated. RESPIRATORY: No accessory muscle use. Clear to auscultation. Breath sounds equal bilaterally. GASTROINTESTINAL: Abdomen soft, non-tender, nondistended. Hepatic and splenic margins not palpable. MUSCULOSKELETAL: No obvious deformities. No clubbing. No cyanosis. No edema. NEUROLOGICAL: Awake and alert. No obvious cranial nerve deficits. Motor grossly within normal limits. Normal speech. PSYCHIATRIC: Appropriate mood and affect; insight and judgment normal. Data Data Last Documented VS Vital Signs Date Time Temp Pulse Resp B/P Pulse Ox O2 Delivery O2 Flow Rate FiO2 10/12/16 21:38 16 10/12/16 19:43 66 100 10/12/16 19:43 146/67 124/61 10/12/16 19:43 Room Air 10/12/16 19:40 98.0 Orders Electrocardiogram (10/12/16 19:28) Basic Metabolic Panel (Bmp) (10/12/16 19:28) Ckmb (Isoenzyme) Profile (10/12/16 19:28) Complete Blood Count With Diff (10/12/16 19:28) Magnesium (Mg) (10/12/16 19:28) Prothrombin Time / Inr (Pt) (10/12/16 19:28) Act Partial Throm Time (Ptt) (10/12/16 19:28) Troponin I (10/12/16 19:28) Chest, Single Ap (10/12/16 19:28) Ecg Monitoring (10/12/16 19:28) Bilateral Bp Monitoring (10/12/16 19:28) Iv Access Insert/Monitor (10/12/16 19:28) Oximetry (10/12/16 19:28) Oxygen Administration (10/12/16 19:28) Morphine Inj (Morphine Inj) (10/12/16 19:30) Sodium Chloride 0.9% Flush (Ns Flush) (10/12/16 19:30) Sodium Chlorid 0.9% 500 Ml Inj (Ns 500 M (10/12/16 19:30) Ondansetron Inj (Zofran Inj) (10/12/16 19:30) Hepatic Functional Panel (10/12/16 19:45) Lipase (10/12/16 19:45) Admit Order (Ed Use Only) (10/12/16 22:44) Labs Laboratory Tests Test 10/12/16 19:45 White Blood Count 9.4 TH/MM3 Red Blood Count 4.43 MIL/MM3 Hemoglobin 13.4 GM/DL Hematocrit 39.7 % Mean Corpuscular Volume 89.4 FL Mean Corpuscular Hemoglobin 30.2 PG Mean Corpuscular Hemoglobin 33.7 % Concent Red Cell Distribution Width 14.0 % Platelet Count 226 TH/MM3 Mean Platelet Volume 7.9 FL Neutrophils (%) (Auto) 69.5 % Lymphocytes (%) (Auto) 18.3 % Monocytes (%) (Auto) 11.4 % Eosinophils (%) (Auto) 0.5 % Basophils (%) (Auto) 0.3 % Neutrophils # (Auto) 6.6 TH/MM3 Lymphocytes # (Auto) 1.7 TH/MM3 Monocytes # (Auto) 1.1 TH/MM3 Eosinophils # (Auto) 0.0 TH/MM3 Basophils # (Auto) 0.0 TH/MM3 CBC Comment DIFF FINAL Differential Comment Prothrombin Time 10.5 SEC Prothromb Time International 1.0 RATIO Ratio Activated Partial 23.6 SEC Thromboplast Time Sodium Level 139 MEQ/L Potassium Level 4.2 MEQ/L Chloride Level 106 MEQ/L Carbon Dioxide Level 24.8 MEQ/L Anion Gap 8 MEQ/L Blood Urea Nitrogen 17 MG/DL Creatinine 0.64 MG/DL Estimat Glomerular Filtration 92 ML/MIN Rate Random Glucose 123 MG/DL Calcium Level 8.8 MG/DL Magnesium Level 1.8 MG/DL Total Bilirubin 0.6 MG/DL Direct Bilirubin 0.2 MG/DL Indirect Bilirubin 0.4 MG/DL Aspartate Amino Transf 106 U/L (AST/SGOT) Alanine Aminotransferase 73 U/L (ALT/SGPT) Alkaline Phosphatase 136 U/L Total Creatine Kinase 55 U/L Troponin I LESS THAN 0.02 NG/ML Total Protein 6.6 GM/DL Albumin 3.6 GM/DL Lipase 60 U/L MDM Medical Decision Making Medical Screen Exam Complete: Yes Emergency Medical Condition: Yes Medical Record Reviewed: Yes Interpretation(s) Twelve-lead EKG was reviewed by me. Normal sinus rhythm, normal axis, nonspecific ST-T wave changes. Heart rate of 72 bpm. Differential Diagnosis ACS, non-STEMI, acute cholecystitis, acute pancreatitis Narrative Course 8:47 PM blood test results of back and within acceptable limits. Chest x-rays within normal limits. I just added liver function tests and lipase. Awaiting for the test results to be back. Patient was given morphine for pain and Zofran for nausea. 10:02 PM blood test results are back. Patient's liver enzymes are elevated. Lipase is within normal limits. Her epigastric pain is most probably secondary to a biliary colic. I do not think this is a cardiac pain. I discussed at length with the patient and her about this. She told me that she is scheduled for cholecystectomy by a surgeon in [place] for January of this year. Her coppersmith helper had told her that she should not get an elective surgery at least for one year status post cardiac stent since the anticoagulation should not be stopped. White blood cell count is within normal limits. I do not see any signs of infection at this point either on her workup or clinically. She says her pain is down to 3 out of 10 after the morphine she received. 10:40 PM patient told me that she is very concerned and would like to stay at this point. I put a call out for the hospitalist. Awaiting for hospitalist to call back. Procedures EKG Prior to Arrival: Yes Diagnosis Primary Impression: Recurrent biliary colic Additional Impressions: Epigastric pain Elevated liver enzymes Admitting Information Admitting Physician Requests: Observation Scripts Atorvastatin 80 Mg Tab80 Mg PO HS #0 TAB Ref 0 Can resume in one week if abdominal pain has improved or if cleared by PCP. Prov:Clayton Rowe 10/13/16 Kenia Fajardo MD Oct 12, 2016 20:28
[2016-10-12 20:32] LABS: ANION GAP 8 MEQ/L (5-15); APTT (PATIENT) 23.6 SEC (24.3-30.1); BICARBONATE 24.8 MEQ/L (21.0-32.0); BLOOD UREA NITROGEN 17 MG/DL (7-18); CHLORIDE 106 MEQ/L (98-107); GLOMERULAR FILTRATION RATE 92 ML/MIN (>89); MAGNESIUM 1.8 MG/DL (1.5-2.5); POTASSIUM 4.2 MEQ/L (3.5-5.1); PROTHROMBIN TIME - PATIENT 10.5 SEC (9.8-11.6); SODIUM (NA) 139 MEQ/L (136-145)
[2016-10-12 20:38] LABS: CREATINE KINASE 55 U/L (26-192)
[2016-10-12 21:00] LABS: ALT (GPT) 73 U/L (10-53); AST (GOT) 106 U/L (15-37)
[2016-10-12 21:02] LABS: ALKALINE PHOSPHATASE 136 U/L (45-117); INDIRECT BILIRUBIN 0.4 MG/DL (0.0-0.8); TOTAL BILIRUBIN ADULT 0.6 MG/DL (0.2-1.0)
[2016-10-12] MEDS ORDERED: MAGNESIUM HYDROXIDE SUSP 30 ML CUP PO PRN (22:45)
[2016-10-12] MEDS ORDERED: SODIUM CHLOR 0.9% 1000 ML INJ 1,000 ML IV SCH (22:45)
[2016-10-12] MEDS ORDERED: BISACODYL 10 MG SUPP RECTAL PRN (22:45)
[2016-10-12] MEDS ORDERED: MORPHINE SULFATE 8 MG/ML INJ IV PUSH PRN ×2 (22:45)
[2016-10-12] MEDS ORDERED: NALOXONE HCL 0.4 MG/ML AMP IV PRN (22:45)
[2016-10-12] MEDS ORDERED: LACTULOSE SYRUP 20 GM/30 ML CUP PO PRN (22:45)
[2016-10-12] MEDS ORDERED: SENNOSIDES 8.6 MG TAB PO PRN (22:45)
[2016-10-12] MEDS ORDERED: ONDANSETRON HCL 4 MG/2 ML VIAL IVP PRN (22:45)
[2016-10-12 23:30] VITALS: BP 138/68; PULSE 69; RESP 16; O2SAT 98
--- NOTE | 2016-10-12 23:42 | HHI.HP ---
[facility] Non[facility]Staff Admission Diagnosis biliary colic, elevated LFTs Diagnoses: Chief Complaint: Mid epigastric and RUQ abdominal pain Travel History International Travel<30 Days: No Contact w/Intl Traveler <30 Da: No Traveled to Known Affected Are: No History of Present Illness Written by FE Orourke acting as scribe for [Colten] on 10/12/16 at 23:36. 71 y/o female with a history of gallbladder issues, CAD with stent placement 2015 presented to the ED with complaints of abdominal pain. She states she was having abdominal pain 10/10 in the mid epigastric area with radiation to RUQ, started on Thursday night but increased to severe this morning. Denies any chest pain, sob, fever or chills. Patient has been told she needs her gallbladder removed, but her associate director finance does not recommend it until one year after stent placement. She is scheduled in January for removal. Review of Systems Constitutional: DENIES: Fever, Chills Respiratory: DENIES: Cough, Sputum production, Shortness of breath Cardiovascular: DENIES: Chest pain, Lower Extremity Edema Gastrointestinal: COMPLAINS OF: Abdominal pain, DENIES: Nausea, Vomiting Musculoskeletal: DENIES: Back pain, Neck pain Integumentary: DENIES: Rash Hematologic/lymphatic: DENIES: Lymphadenopathy Immunologic/allergic: DENIES: Urticaria Neurologic: DENIES: Headache Past Family Social History Past Medical History dyslipidemia HTN Past Surgical History Tonsillectomy C Section Reported Medications Reported Meds & Active Scripts Active Lortab (Hydrocodone-Acetaminophen) 5-325 Mg Tab 1 Tab PO Q6H PRN Reported D3 Super Strength (Cholecalciferol) 2,000 Unit Cap 2,000 Units PO DAILY Biotin 10 Mg Tab 10 Mg PO DAILY Aspirin Low Dose (Aspirin) 81 Mg Chew 81 Mg CHEW DAILY Nitrostat SL (Nitroglycerin) 0.4 Mg Subl 0.4 Mg SL DIRECTED PRN 1 tablet under the tongue as needed for chest pain. Repeat every 5 minutes for a total of 3 DOSES or call 911 if NO relief. Metoprolol Succinate ER 24 HR (Metoprolol Succinate) 25 Mg Tab 25 Mg PO DAILY Lisinopril 10 Mg Tab 10 Mg PO DAILY Brilinta (Ticagrelor) 90 Mg Tab 90 Mg PO BID Atorvastatin (Atorvastatin Calcium) 80 Mg Tab 80 Mg PO HS Allergies: Coded Allergies: Penicillin (Verified Allergy, Unknown, Hives, 10/12/16) Active Ordered Medications Current Medications Medications (Trade) Dose Ordered Sig/Gadiel Route Start Time Stop Time Status Last Admin Sodium Chloride 2 ml 2 ml UNSCH PRN IVF 10/12/16 19:30 (NS 1000 ml Inj) 1,000 ml @ 70 mls/hr [id number] IV 10/12/16 22:45 (Zofran Inj) 4 mg Q6H PRN IVP 10/12/16 22:45 (Morphine Inj) 2 mg Q3H PRN IV PUSH 10/12/16 22:45 (Morphine Inj) 4 mg Q3H PRN IV PUSH 10/12/16 22:45 (Narcan Inj) 0.4 mg UNSCH PRN IV 10/12/16 22:45 (Renetta-Colace) 1 tab BID PO 10/13/16 09:00 (Milk Of Magnesia Liq) 30 ml Q12H PRN PO 10/12/16 22:45 (Senokot) 17.2 mg Q12H PRN PO 10/12/16 22:45 (Dulcolax Supp) 10 mg DAILY PRN RECTAL 10/12/16 22:45 (Lactulose Liq) 30 ml DAILY PRN PO 10/12/16 22:45 Family History Dad: Heart disease Social History Tobacco use: Denies Alcohol use: Occasionally Illicit drug use: Denies Physical Exam Vital Signs Vital Signs Date Time Temp Pulse Resp B/P Pulse Ox O2 Delivery O2 Flow Rate FiO2 10/12/16 21:38 16 10/12/16 19:43 66 100 10/12/16 19:43 146/67 124/61 10/12/16 19:43 100 Room Air 10/12/16 19:40 98.0 66 16 146/67 98 Physical Exam GENERAL: This is a well-nourished, well-developed patient, in no apparent distress. SKIN: No rashes, ecchymoses or lesions. Cool and dry. HEAD: Atraumatic. Normocephalic. No temporal or scalp tenderness. EYES: Pupils equal round and reactive. Extraocular motions intact. No scleral icterus. No injection or drainage. ENT: Nose without bleeding, purulent drainage or septal hematoma. Throat without erythema, tonsillar hypertrophy or exudate. Uvula midline. Airway patent. NECK: Trachea midline. No JVD or lymphadenopathy. Supple, nontender, no meningeal signs. CARDIOVASCULAR: Regular rate and rhythm without murmurs, gallops, or rubs. RESPIRATORY: Clear to auscultation. Breath sounds equal bilaterally. No wheezes , rales, or rhonchi. GASTROINTESTINAL: Abdomen soft, mid epigastric and RUQ tenderness, nondistended. No hepato-splenomegaly, or palpable masses. No guarding. MUSCULOSKELETAL: Extremities without clubbing, cyanosis, or edema. No joint tenderness, effusion, or edema noted. No calf tenderness. NEUROLOGICAL: Awake and alert. Motor and sensory grossly within normal limits. Normal speech. Laboratory Laboratory Tests Test 10/12/16 19:45 White Blood Count 9.4 Red Blood Count 4.43 Hemoglobin 13.4 Hematocrit 39.7 Mean Corpuscular Volume 89.4 Mean Corpuscular Hemoglobin 30.2 Mean Corpuscular Hemoglobin 33.7 Concent Red Cell Distribution Width 14.0 Platelet Count 226 Mean Platelet Volume 7.9 Neutrophils (%) (Auto) 69.5 Lymphocytes (%) (Auto) 18.3 Monocytes (%) (Auto) 11.4 Eosinophils (%) (Auto) 0.5 Basophils (%) (Auto) 0.3 Neutrophils # (Auto) 6.6 Lymphocytes # (Auto) 1.7 Monocytes # (Auto) 1.1 Eosinophils # (Auto) 0.0 Basophils # (Auto) 0.0 CBC Comment DIFF FINAL Differential Comment Prothrombin Time 10.5 Prothromb Time International 1.0 Ratio Activated Partial 23.6 Thromboplast Time Sodium Level 139 Potassium Level 4.2 Chloride Level 106 Carbon Dioxide Level 24.8 Anion Gap 8 Blood Urea Nitrogen 17 Creatinine 0.64 Estimat Glomerular Filtration 92 Rate Random Glucose 123 Calcium Level 8.8 Magnesium Level 1.8 Total Bilirubin 0.6 Direct Bilirubin 0.2 Indirect Bilirubin 0.4 Aspartate Amino Transf 106 (AST/SGOT) Alanine Aminotransferase 73 (ALT/SGPT) Alkaline Phosphatase 136 Total Creatine Kinase 55 Troponin I LESS THAN 0.02 Total Protein 6.6 Albumin 3.6 Lipase 60 Result Diagram: 7/9/17 1945 7/9/17 1945 Imaging Last Impressions Chest X-Ray 10/12/161927 Signed Impressions: Service Date/Time: Wednesday, October 12, 2016 19:33 - CONCLUSION: No acute disease. Randy Hernandez MD Assessment and Plan Problem List: (1) Recurrent biliary colic ICD Code: K80.50 Status: Acute (2) Transaminitis ICD Code: R74.0 Status: Acute (3) HTN (hypertension) ICD Code: I10 Status: Chronic Assessment and Plan 71 y/o female with a history of gallbladder issues, CAD with stent placement 2015 presented to the ED with complaints of abdominal pain. Recurrent biliary colic, patient presents with mid epigastric and right upper quadrant pain, will rule out acute coronary syndrome -Pain management with IV morphine Coronary artery disease, rule out acute coronary syndrome Troponin less than 0.02, EKG shows sinus rhythm -Serial Troponin and EKGs -Cont home ASA, and brilinta Transaminitis, AST 106, ALT 73 -CMP in a.m., and trend -Hold atorvastatin Hypertension, chronic, currently stable -Reorder home medications lisinopril and metoprolol DVT prophylaxis: Bilinta This note was transcribed by yudelka Francisco. I, Dr. Andrei Abel personally performed the history, physical exam, and medical decision making; and confirmed the accuracy of the information in the transcribed note. Authenticated by Dr. Andrei Abel on 10/13/16 at 01:13. Discussed Condition With Patient and ED physician Meka Francisco Oct 12, 2016 23:42 Andrei Abel MD Oct 13, 2016 01:13
[2016-10-13] MEDS: TICAGRELOR 90 MG TAB PO SCH ×2 (00:58→10:02)
[2016-10-13] MEDS: SODIUM CHLORIDE 0.9% FLUSH 10 ML FLUSH IVF PRN ×3 (01:03→10:03)
[2016-10-13 01:20] VITALS: BP 127/59; PULSE 61; RESP 18; TEMP 97.6; O2SAT 98
[2016-10-13 01:46] VITALS: PULSE 60
[2016-10-13 03:39] VITALS: BP 118/57; PULSE 57; RESP 18; TEMP 97.6; O2SAT 97
[2016-10-13 07:14] VITALS: BP 132/64; PULSE 56; RESP 15; TEMP 97.6; O2SAT 100
[2016-10-13 08:49] LABS: ANION GAP 5 MEQ/L (5-15); AST (GOT) 64 U/L (15-37); BICARBONATE 27.2 MEQ/L (21.0-32.0); BLOOD UREA NITROGEN 11 MG/DL (7-18); CHLORIDE 109 MEQ/L (98-107); GLOMERULAR FILTRATION RATE 128 ML/MIN (>89); POTASSIUM 3.8 MEQ/L (3.5-5.1); SODIUM (NA) 141 MEQ/L (136-145)
[2016-10-13 08:50] LABS: ALT (GPT) 86 U/L (10-53)
[2016-10-13 08:52] LABS: ALKALINE PHOSPHATASE 141 U/L (45-117); TOTAL BILIRUBIN ADULT 0.5 MG/DL (0.2-1.0)
[2016-10-13] MEDS ORDERED: METOPROLOL SUCCINATE 25 MG EXTENDED RELEASE TAB PO SCH (09:00)
[2016-10-13] MEDS ORDERED: LISINOPRIL 10 MG TAB PO SCH (09:00)
[2016-10-13] MEDS ORDERED: DOCUSATE SODIUM 50 MG/SENNA 8.6 MG TAB PO SCH (09:00)
[2016-10-13] MEDS ORDERED: ASPIRIN 81 MG CHEW TAB CHEW SCH (09:00)
[2016-10-13] MEDS ORDERED: ATOR1TAB18 PO (09:41)
--- NOTE | 2016-10-13 09:51 | HHI.PR ---
Subjective Remarks Follow-up for biliary colic. The patient states yesterday she was having worsening right upper quadrant pain. She had similar but more severe pain back in May was diagnosed with cholecystitis. She is not had any further issues since that hospitalization with her gallbladder. She already has a surgery appointment to have her gallbladder removed January 12 after she is 1 year s/p stent placement. She reports her dominant pain is improved overnight. She still is Pompey as needed for pain at home. She denies any chest pain or shortness of breath. She denies any fevers. She reports that she is mostly compliant with her low-fat diet, but occasionally cheats. She has been tolerating clear liquids here with no vomiting and would like to slowly advance her diet as tolerated at home. She is happy that her cardiac enzymes are negative and the pain is likely not related to her heart. She does feel comfortable managing her symptoms at home. Objective Vitals Vital Signs Date Time Temp Pulse Resp B/P Pulse Ox O2 Delivery O2 Flow Rate FiO2 10/13/16 07:14 97.6 56 15 132/64 100 10/13/16 03:39 97.6 57 18 118/57 97 10/13/16 01:46 60 10/13/16 01:35 16 10/13/16 01:20 97.6 61 18 127/59 98 10/12/16 23:30 69 16 138/68 98 Room Air 10/12/16 21:38 16 10/12/16 19:43 66 100 10/12/16 19:43 146/67 124/61 10/12/16 19:43 100 Room Air 10/12/16 19:40 98.0 66 16 146/67 98 Result Diagram: 10/12/16194410/13/16 0740 Imaging Last Impressions Chest X-Ray 10/12/161927 Signed Impressions: Service Date/Time: Wednesday, October 12, 2016 19:33 - CONCLUSION: No acute disease. Randy Hernandez MD Objective Remarks GENERAL: Well-developed well-nourished. In no acute distress. SKIN: Warm and dry. No lesions noted. HEENT: Normocephalic. Pupils equal and round. Mucous membranes pink and moist. CARDIOVASCULAR: Regular rate and rhythm. No murmur appreciated. RESPIRATORY: No accessory muscle use. Clear to auscultation. Breath sounds equal bilaterally. GASTROINTESTINAL: Abdomen soft, nondistended, nontender. Bowel sounds x4. MUSCULOSKELETAL: No obvious deformities. No clubbing or cyanosis. No edema. NEUROLOGICAL: Awake and alert. No focal neurological deficits. Moves upper and lower extremities spontaneously. Normal speech. PSYCHIATRIC: Appropriate mood and affect; insight and judgment normal. A/P Problem List: (1) Recurrent biliary colic ICD Code: K80.50 Status: Acute (2) Transaminitis ICD Code: R74.0 Status: Acute (3) HTN (hypertension) ICD Code: I10 Status: Chronic (4) Coronary artery disease ICD Code: I25.10 Status: Chronic Assessment and Plan 71 y/o female with a history of gallbladder issues, CAD with stent placement 2015 presented to the ED with complaints of abdominal pain. Recurrent biliary colic with mild transaminitis: patient presents with mid epigastric and right upper quadrant pain, improving. Reviewed: HIDA scan 05/18/16 showed cholecystitis. AST initially 106, trending down to 64 overnight. Afebrile with no leukocytosis. -Advance diet as tolerated, low-fat -Pain management with Pompey -Continue outpatient surgery follow-up History of Coronary artery disease, ruled out ACS per protocol with epigastric pain Reviewed: Troponin 0.023. EKG shows NSR with no definite ischemic changes -Cont home ASA, and brilinta Transaminitis: Secondary to cholecystitis as above. Improving. -Hold atorvastatin for now and follow up with PCP Hypertension, chronic, currently stable -Continue home lisinopril and metoprolol Discharge Planning Discharge patient to home Condition on discharge: Improved Low-fat Diet, advance as tolerated Regular activity Follow-up with primary care physician Problem Qualifiers (1) HTN (hypertension): Qualified Code: I10 - Essential hypertension (2) Coronary artery disease: Qualified Code: I25.10 - Coronary artery disease involving blackfeet heart without angina pectoris, unspecified vessel or lesion type Clayton Rowe Oct 13, 2016 09:51
--- NOTE | 2016-10-13 13:31 | EKG ---
Date Performed: 10/13/2016 Time Performed: 03:47:45 PTAGE: 71 years EKG: SINUS BRADYCARDIA Compared to prior tracing no significant change BORDERLINE ECG PREVIOUS TRACING : 10/12/2016 19.27 DOCTOR: Gallito Cho Interpretating Date/Time 10/13/2016 13:28:05
--- NOTE | 2016-10-13 13:31 | EKG ---
Date Performed: 10/12/2016 Time Performed: 19:27:38 PTAGE: 71 years EKG: Sinus rhythm MINIMAL ST DEPRESSION BORDERLINE ECG Compared to prior tracing no significant change PREVIOUS TRACING : 05/16/2016 20.08 DOCTOR: Gallito Cho Interpretating Date/Time 10/13/2016 13:28:15
== END 2016-10-13 10:31 | disposition home or self-care (01) ==
LOC: NEPC 19:19 → NEDA 22:45 → NEPFCDU 10-13 00:28
PROVIDERS: ADMIT Hospitalist; ATTEND Hospitalist
DX: K80.50 Calculus of bile duct without cholangitis or cholecystitis without obstruction (principal); R74.0 Nonspecific elevation of levels of transaminase and lactic acid dehydrogenase [LDH]; I25.10 Atherosclerotic heart disease of native coronary artery without angina pectoris; E78.5 Hyperlipidemia, unspecified; R00.1 Bradycardia, unspecified; I10 Essential (primary) hypertension; Z79.899 Other long term (current) drug therapy; Z79.82 Long term (current) use of aspirin
CPT/HCPCS: 71010; 80048; 80053; 80076; 82550; 83690; 83735; 84484; 85025; 85610; 85730; 93005; 96361; 96374; 96375; 99285; G0378; J2270; J2405; J7030; J7040